=== PATIENT | male | born 1960 | race Caucasian/White ===

== ENCOUNTER 2024-10-12 15:22 | Outpatient (CLI) | payer MEDICARE, SELFPAY ==
--- OUTSIDE RECORDS SUMMARY | 2024-10-12 15:26 | XMS_ITS | Referral Summary ---
Author Organization [facility] Address [address] [place] [address] Care Team Providers Care Commercial Subcontractor Name Role Phone Santos Parada DO Unavailable [phone] Trinidad Castro MD Unavailable Kourtney Rodriguez Unavailable Maximino Honeycutt Primary Care Provider [phone] Maximino Honeycutt Unavailable [phone] Encounters Date Type Department Care Team Description 09/27/2024 12:30 PM CDT Office Visit [facility] Cardiology [address] [facility] [address] [place] [phone] Anthony Kim MD Dyspnea, unspecified type (Primary Dx); Primary hypertension; Coronary artery calcification seen on CAT scan; Pure hypercholesterolemia 09/07/2024 Orders Only [address] [address] Veronica Womack RN 09/07/2024 9:35 AM CDT Lab [facility] Building [address] [place] [id number] 09/07/2024 9:20 AM CDT Lab [facility] Building [address] [place] [address] Hyperlipidemia, unspecified hyperlipidemia type 08/04/2024 Results Follow-Up [facility] Gasteroenterology [address] [place] [address] [place] [address] [place] [address] Cary Lester MD Hemoglobin A1c, Lipid panel, Comprehensive metabolic panel, Additional followed-up results: 3 08/03/2024 Orders Only [facility] Gastroenterology [address] [place] [address] [place] [address] [place] [address] Meron Almeida LPN 08/03/2024 10:20 AM CDT Lab [facility] ([facility]) [address] [place] [phone] Hepatic steatosis; Abnormal finding of blood chemistry, unspecified 08/03/2024 8:40 AM CDT Office Visit [facility] Gastroenterology [address] [place] [address] [place] [address] [place] [address] Cary Lester MD Hepatic steatosis (Primary Dx); Abnormal finding of blood chemistry, unspecified 08/02/2024 Documentation [facility] Gastroenterology [address] [place] [address] [place] [address] [place] [address] Meron Almeida LPN 07/26/2024 Telephone [facility] Medical [facility] Cardiology [address] [facility] [address] [place] [address] Anthony Kim MD PA- repatha from Last 3 Months Allergies Active Allergy Reactions Criticality Noted Date Comments Allopurinol Nausea only Low 11/06/2020 Beta-Blockers (Beta-Adrenergic Blocking Agts) Rash Medium 01/29/2024 Ezetimibe Joint pain,Other (Se e comments) Low 09/03/2021 Ibuprofen Anaphylaxis High Lisinopril Joint pain Low 01/10/2024 Naproxen Anaphylaxis High Nsaids (Non-Steroidal Anti-Inflammatory Drug) Anaphylaxis High 07/09/2022 Asgtdqk-Gre-Ngv Reductase Inhibitors Muscle pain Medium 07/06/2019 Turmeric Diarrhea,Nausea And Vomiting,Nausea only,Fatigue Low 06/06/2021 Unclassified Drug Rash Medium 01/29/2024 Venom-Honey Bee Swelling Medium 08/17/2013 Medications dupilumab (Dupixent Syringe) syringe Inject 2 mL (300 mg total) under the skin every 14 (fourteen) days Active acetaminophen (TYLENOL ORAL) Take by mouth as needed PRN Active EPINEPHrine 0.3 mg/0.3 mL auto-injection syringe Inject 0.3 mL (0.3 mg total) into the muscle as instructed as needed for anaphylaxis 1 each 01/26/20 23 Active co-enzyme Q-10 50 mg capsule Take 1 capsule (50 mg total) by mouth daily Active gabapentin (NEURONTIN) 300 mg capsule Take 1 capsule (300 mg total) by mouth 3 (three) times a day 90 capsule 1 11/02/19 24 025 Active cholestyramine (QUESTRAN) 4 gram powder Dissolve 2 scoops ( 8 grams total) in 8 ounces of liquid and drink twice daily before meals. 378 g 11 03/03/20 24 Active evolocumab (REPATHA) syringe syringe Inject 1 mL (140 mg total) under the skin every 2 (two) weeks 6 mL 1 03/24/20 24 Active valsartan (DIOVAN) 160 mg tablet Take 1 tablet (160 mg total) by mouth daily 90 tablet 3 05/22/20 24 025 Active aspirin 81 mg enteric coated tablet Take 1 tablet (81 mg total) by mouth daily 90 tablet 1 08/15/19 25 026 Active hydroCHLOROthiaz lance (HYDRODIURIL) 25 mg tabletIndication s:Primary hypertension Take 1 tablet (25 mg total) by mouth daily 90 tablet 1 08/26/19 25 026 Active fluticasone propionate (FLONASE) 50 mcg/actuation nasal spray USE 1 SPRAY(S) IN EACH NOSTRIL TWICE A DAY 03/04/20 23 025 Discontinu ed(No longer taking - Do not display on AVS) Active Problems Problem Noted Date Diagnosed Date Septic arthritis 01/28/2024 Abscess of left knee 01/28/2024 Ischemic heart disease 07/27/2023 Rash 07/22/2023 Assessment & Plan (07/22/2023 2:32 PM FINISHING PAN OPERATOR): This is new, moisturizing oil discussed, meds as ordered, limit hot tub to 20 minutes Adverse effect of other nons teroidal anti-inflammatory drugs (NSAID), subsequent encounter 06/08/2023 Polyp of nasal cavity 06/08/2023 Uncomplicated severe persistent asthma Adverse effect of non-steroi oli anti-inflammatory drug (NSAID) 10/14/2022 10/14/2022 Allergic rhinitis 10/14/2022 10/14/2022 Allergic rhinitis due to animal hair and dander 10/14/2022 10/14/2022 Allergic rhinitis due to pollen 10/14/2022 10/14/2022 Chronic allergic conjunctivitis 10/14/2022 10/14/2022 Cough 10/14/2022 10/14/2022 Statin intolerance 10/14/2022 Assessment & Plan (10/14/2022 9:10 AM CDT): Using other meds Routine general medical exam ination at a health care facility 10/13/2022 Assessment & Plan (10/19/2023 6:27 AM CDT): Healthcare maintenance updated Lymphocytic colitis 05/21/2022 Acute cholecystitis 04/22/2022 10/14/2022 Overview (10/14/2022): Added automatically from request for surgery [id number] Severe malnutrition 03/25/2022 Nasal polyposis 03/22/2022 Assessment & Plan (03/23/2022 1:37 PM CDT): Pt reports very good control of this issue on home dupixent Q2 week, can continue as outpatient Assessment & Plan (03/22/2022 12:48 AM CDT): Pt reports very good control of this issue on home dupixent Q2 week, can continue as outpatient Biliary stricture 03/22/2022 Assessment & Plan (03/25/2022 3:41 PM CDT): Pt presented with leukocytosis, alk phos ~900 and mild transaminitis at beginning of February, found with US/MRCP to have retained stone. S/p ERCP with CBD stent and 03/19 stent exchange with biopsy done for CBD mild stricture. LFT has since been improving - unclear if related to diarrhea as above given improvement of LFT, CT showing stent in place with expected changes - No evidence of malignancy on biliary stricture bx from 03/19. Assessment & Plan (03/22/2022 12:55 AM CDT): Pt presented with leukocytosis, alk phos ~900 and mild transaminitis at beginning of February, found with US/MRCP to have retained stone. S/p ERCP with CBD stent and 03/19 stent exchange with biopsy done for CBD mild stricture. LFT has since been improving - unclear if related to diarrhea as above given improvement of LFT, CT showing stent in place with expected changes - can continue to fu outpatient as scheduled Vomiting and diarrhea 03/21/2022 Assessment & Plan (03/26/2022 3:33 PM CDT): Pt with ongoing severe watery diarrhea, has been ongoing since October but worsened over the past month. Unclear etiology but pt with dehydration and NAGMA on presentation, 12+ watery BM daily. Infectious workup from OSH ~03/02 largely negative, timing is coinciding with discovery of billiary stones and stricutre as below, but has not had any improvement despite stent placement and consistently improving LFT. CT on admission with diarrhea illness, stent in place - infectious workup unremarkable, TTG and gliadin negative, CRP normal. Vitamin D 27 -> started supplementation. Vitamin A and E WNL. fecal elastase and calprotectin pending. - GI consulted - Loperamide 2 mg TID PRN - EGD & colonoscopy 03/26 Assessment & Plan (03/22/2022 12:55 AM CDT): Pt with ongoing severe watery diarrhea, has been ongoing since October but worsened over the past month. Unclear etiology but pt with dehydration and NAGMA on presentation, 12+ watery BM daily. Infectious workup from OSH ~03/02 largely negative, timing is coinciding with discovery of billiary stones and stricutre as below, but has not had any improvement despite stent placement and consistently improving LFT. CT on admission with diarrhea illness, stent in place PLAN - will repeat infectious workup including hiv, cyrpto/giardia, cdiff, stool culture - will check lipase, zofran PRN for nausea - IVF - will ctm, if infectious workup remains negative will likely need biliary/gi evaluation Calculus of gallbladder 03/09/2022 10/15/19 23 Choledocholithiasis 03/09/2022 10/14/2022 Overview (10/14/2022): Added automatically from request for surgery [id number] Generalized abdominal pain 03/09/202210/14 Assessment & Plan (04/14/2023 10:33 AM FINISHING PAN OPERATOR): This is currently stable will continue to follow Diarrhea 03/04/2022 Hypokalemia 03/02/2022 10/14/2022 Thrombocytopenia 01/08/2022 Acute renal failure (ARF) 11/20/20212022 LAURIE (acute kidney injury) 11/20/20212022 Myelopathy 10/23/2021 10/14/2022 Other cervical disc degenera tion, unspecified cervical region 10/23/2021 10/14/2022 Spinal stenosis, cervical region 10/23/2021 10/14/2022 Spinal stenosis at L4-L5 level 08/26/2021 0 10/14/2022 Assessment & Plan (10/20/2023 11:00 AM CDT): Failing pain mgt, they discussed ablation, he is unsure, willing to see neurosurgery for opinion Assessment & Plan (04/14/2023 10:33 AM FINISHING PAN OPERATOR): Patient is going to start physical therapy already had back x-rays is going to get me a copy he may need an MRI Radiculopathy, cervical region 03/28/2021 0 10/14/2022 Assessment & Plan (04/14/2023 10:33 AM FINISHING PAN OPERATOR): Currently seeing Rheumatology Acute pain of left knee 03/12/2021 10/15/19 23 Primary osteoarthritis of both knees 03/12/2021 10/14/2022 Overview (10/14/2022): Last Assessment & Plan: We discussed the risks, benefits and alternatives. The only thing proven to slow the progression of osteoarthritis is weight loss. Every pound lost relieves 4 to 6 pounds of stress across the knee. We discussed unloading braces. Formal physical therapy to help with flexibility, mobility and strength. We discussed TENS units. Nonsteroidal anti-inflammatories as well as Tylenol and pain medication and their side effects. We discussed steroid versus Visco supplement injection. We discussed eventual total knee arthroplasty. After going over the risks, benefits and alternatives patient cannot take nonsteroidal anti-inflammatories or allopurinol. Pain is relatively well controlled at this point in time and just wants to have knowledge that he could follow-up as he is changing his orthopedics from Dr. Mcgraw to our practice. Follow-up as needed Hyperuricemia 08/28/2020 10/14/2022 Severe persistent asthma without complication Overview (04/14/2023): Last Assessment & Plan: Well-controlled at present, continue current medications and call with any problems. Reevaluate in 6 months. Assessment & Plan (10/19/2023 6:27 AM CDT): This is well controlled with current p.r.n. inhalers Assessment & Plan (06/08/2023 11:44 AM FINISHING PAN OPERATOR): This is mild/intermittent/controlled with p.r.n. inhalers Mixed hyperlipidemia 07/06/2012 Overview (04/14/2023): Last Assessment & Plan: After discussion, patient is willing to try Pravachol. I was going to defer for 3 months and let him work on diet, but after discussion again, he would prefer to try it now, thinking he would find it difficult to abstain from red meats. Therefore will start low-dose Pravachol and wait for his call and update in 1 month. If improved, and tolerating medicine, will recheck cholesterol panel in 3 months and adjust accordingly. Assessment & Plan (04/14/2023 10:33 AM FINISHING PAN OPERATOR): Patient is to continue present medications, work on diet and exercise as discussed, we did discuss the medications and potential side effects and signs and symptoms that would warrant calling office. Follow up routine. Hyperlipidemia 02/26/2012 Overview (08/28/2016): Hyperlipidemia Assessment & Plan (10/19/2023 6:27 AM CDT): Patient has been able to take Zetia or statins due to side effects I have asked him to take some fzkj-knz-odwjhvq fish oil labs at next visit Assessment & Plan (06/08/2023 11:44 AM FINISHING PAN OPERATOR): Patient has been able to take Zetia or statins due to side effects I have asked him to take some xdhk-bip-lhlndte fish oil labs at next visit Hypertension 02/26/2012 Overview (08/28/2016): Hypertension Assessment & Plan (10/19/2023 6:27 AM CDT): This is a stable chronic condition. Monitor blood pressure, call if out of parameters as we discussed. Low sodium and caffeine diet. baby asa as discussed if applicable. Diet, exercise and weight reduction. Labs as ordered. F/U routine Assessment & Plan (06/08/2023 11:44 AM FINISHING PAN OPERATOR): This has been control patient did not tolerate amlodipine he had severe muscle aches and my arthralgias with lisinopril am going to give him a trial on some hydrochlorothiazide he will do a Chem 7 in 2 weeks we discussed the med use potential side effects follow-up with 5 day blood pressure Arthralgia 02/26/2012 Overview (08/28/2016): Joint pain Assessment & Plan (10/19/2023 6:27 AM CDT): This is resolved with cessation of lisinopril Assessment & Plan (06/08/2023 11:44 AM FINISHING PAN OPERATOR): This is resolved with cessation of lisinopril Essential hypertension 02/19/2012 Overview (04/14/2023): Last Assessment & Plan: Patient felt funny yesterday and held his dose of lisinopril after measuring a blood pressure of 106 over 60s. I have encouraged him to not discontinue his medication completely, as he is on a relatively high dose of lisinopril. However, he can continue monitoring his blood pressures and cut his dose in half if they remain below 130/85, returning to his previous dose if they remain above that number. Reevaluate in 6 months. Assessment & Plan (04/14/2023 10:33 AM FINISHING PAN OPERATOR): This is a stable chronic condition. Monitor blood pressure, call if out of parameters as we discussed. Low sodium and caffeine diet. baby asa as discussed if applicable. Diet, exercise and weight reduction. Labs as ordered. F/U routine Immunizations Immunization Administration Dates Next Due Influenza, Quadrivalent, Harmony l Culture-based MDCK, Antibiotic Free, Intramuscular 05/25/2019,03/08/2019 Influenza, Trivalent, Cell Culture-based MDCK, Preservative Free, Antibiotic Free, Intramuscular 05/25/2019,03/08/2019 Influenza, Unspecified 05/08/2023(Deferr ed: Patient decision),04/14/2023(Deferred: Patient decision),2023(Deferred: Patient decision),2023(Deferred: Patient decision),04/16/2022(Deferred: Patient decision),04/14/2022(Deferred: Patient decision),05/25/2019 Pneumococcal Conjugate PCV 13 08/03/2018, 017 Pneumococcal Polysaccharide PPV23 08/10/2018 Social History Tobacco Use Types Packs/Day Years Used Date Smoking Tobacco: Never Tobacco Cessation:Counseling Given: Not Answered Alcohol Use Standard Drinks/Week Comments Yes 0 (1 standard drink = 0.6 oz pur e alcohol) [facility] Utilities Answer Date Recorded In the past 12 months has th e electric, gas, oil, or water company threatened to shut off services in your home? No 01/31/2024 Social Connection and Isolat ion Panel [NHANES] Answer Date Recorded In a typical week, how many times do you talk on the phone with family, friends, or neighbors? More than three times a week 01/31/2024 How often do you get togethe r with friends or relatives? More than three times a week 01/31/2024 How often do you attend chur ch or mandaen services? Never 01/31/2024 Do you belong to any clubs o r organizations such as christian groups, unions, fraternal or athletic groups, or school groups? Yes 01/31/2024 How often do you attend meet ings of the clubs or organizations you belong to? 1 to 4 times per year 01/31/2024 Are you , , di vorced, , never , or living with a partner? 01/31/2024 AUDIT-C Answer Date Recorded Q1: How often do you have a drink containing alc ohol? Monthly or less 10/20/2023 Q2: How many drinks containi ng alcohol do you have on a typical day when you are drinking? 1 or 2 10/20/2023 Frequency of Binge Drinking Not on file 09/22 Overall Financial Resource Strain (CARDIA) Answe r Date Recorded How hard is it for you to pa y for the very basics like food, housing, medical care, and heating? Not hard at all 01/31/2024 PHQ-2 Answer Date Recorded PHQ-2 Total Score (If total score is 3 or more points, staff should administer the PHQ-9) 0 10/20/2023 Hunger Vital Sign Answer Date Recorded Within the past 12 months, y ou worried that your food would run out before you got the money to buy more. Never true 01/31/20 24 Within the past 12 months, t he food you bought just didn't last and you didn't have money to get more. Never true 01/31/2024 PRAPARE - Transportation Answer Date Re corded In the past 12 months, has l ack of transportation kept you from medical appointments or from getting medications? No 01/2024 In the past 12 months, has l ack of transportation kept you from meetings, work, or from getting things needed for daily living? No 01/31/2024 Housing Stability Vital Sign Answer Maynor e Recorded In the last 12 months, was t here a time when you were not able to pay the mortgage or rent on time? No 03/25/2022 In the last 12 months, how many places have you lived? 1 03/25/2022 In the last 12 months, was t here a time when you did not have a steady place to sleep or slept in a care home (including now)? No 03/25/2022 Housing Stability Vital Sign Answer Maynor e Recorded In the last 12 months, was t here a time when you were not able to pay the mortgage or rent on time? No 01/31/2024 In the past 12 months, how m any times have you moved where you were living? 0 01/31/2024 At any time in the past 12 m [facility], were you homeless or living in a care home (including now)? No 01/31/2024 Personal Safety Answer Date Recorded Have you ever been in or are you currently in a harmful physical or emotional relationship or is someone making you feel afraid or unsafe? Denies 01/29/2024 Sex and Gender Information Value Date Recorded Sex Assigned at Not on file Legal Sex Male 7:31 AM FINISHING PAN OPERATOR Gender Identity Not on file Sexual Orientation Not on file Last Filed Vital Signs Vital Sign Reading Time Taken Comments Blood Pressure 138/78 09/27/2024 12:24 PM CDT Pulse 81 09/27/2024 12:24 PM CDT Temperature 36.7 C (98 F) 08/03/2024 7:45 AM CDT Respiratory Rate 16 01/31/2024 7:29 AM CDT Oxygen Saturation 99% 09/27/2024 12: 24 PM CDT Inhaled Oxygen Concentration - - Weight 95.6 kg (210 lb 12.8 oz) 025 12:24 PM CDT Height 172.7 cm (5' 7.99 ) 09/27/2024 1 2:24 PM CDT Body Mass Index 32.06 09/27/2024 12:24 PM CDT Plan of Treatment Not on file Procedures Procedure Name Priority Date/Time Associated Diagnosis Comments LIPID PANEL Routine 09/07/2024 9:31 AM CDT Hyperlipidemia, unspecified hyperlipidemia type EGFR Routine 09/07/2024 9:27 AM CDT URIC ACID Routine 09/07/2024 9:27 AM CDT COMPREHENSIVE METABOLIC PANEL Routine 09/07/2024 9:27 AM CDT EGFR Routine 08/03/2024 9:59 AM CDT Hepatic steatosis DIFFERENTIAL AUTO Routine 08/03/2024 9:5 9 AM CDT Hepatic steatosis CBC WITH AUTO DIFFERENTIAL Routine 08/03/2024 9:59 AM CDT Hepatic steatosis COMPREHENSIVE METABOLIC PANEL Routine 08/03/2024 9:59 AM CDT Hepatic steatosis LIPID PANEL Routine 08/03/2024 9:59 AM CDT Hepatic steatosis HEMOGLOBIN A1C Routine 08/03/2024 9:59 AM CDT Hepatic steatosis Abnormal finding of blood chemistry, unspecified HEPATITIS PANEL, ACUTE Routine 01/30/2024 6:16 AM CDT PSA SCREEN Routine 10/14/2022 9:44 AM CDT Routine general medical examination at a [facility] care facility COLONOSCOPY 03/26/2022 2:51 PM CDT from Last 3 Months or Most Recently Relevant to Health Maintenance Results * (ABNORMAL) Lipid panel (09/07/2024 9:31 AM CDT) Cholesterol 153 30 - 199 mg/dL Comment: Interpretive Data Ages < or = 19 years Acceptable: <170 mg/dL Borderline high: 170-199 mg/dL High: >or= 200 mg/dL Ages > or = 20 years Desirable: <200 mg/dL Borderline high: 200-239 mg/dL High: >or= 240 mg/dL Literature References: 1. Expert Panel on Integrated Guidelines for Cardiovascular Health and Risk Reduction in Children and Adolescents. Pediatrics 2011;128:S213 2. NCEP Expert Panel. Circulation 2004;110:227 Current Interpretive Data was last revised on 2018. Testing performed by: [address] [address] Triglycerides 296(H) <=149 mg/dL NIKA Comment: Interpretive Data Ages < or = 9 years Acceptable: <75 mg/dL Borderline high: 75-99 mg/dL High: >or= 100 mg/dL Ages 10 to 20 years Acceptable: <90 mg/dL Borderline high: 90-129 mg/dL High: >or= 130 mg/dL Ages > or = 20 years Desirable: <150 mg/dL Borderline high: 150-199 mg/dL High: 200-499 mg/dL Very high: >or= 499 mg/dL Literature References: 1. Expert Panel on Integrated Guidelines for Cardiovascular Health and Risk Reduction in Children and Adolescents. Pediatrics 2011;128:S213 2. NCEP Expert Panel. Circulation 2004;110:227 Current Interpretive Data was last revised on 2018. Testing performed by: [address] [address] HDL 44 >=40 mg/dL NIKA Comment: Interpretive Data Ages < or = 19 years Acceptable: >45 mg/dL Borderline low: 40-45 mg/dL Low: <40 mg/dL Ages > or = 20 years Desirable: >or= 60 mg/dL Low: <40 mg/dL Literature References: 1. Expert Panel on Integrated Guidelines for Cardiovascular Health and Risk Reduction in Children and Adolescents. Pediatrics 2011;128:S213 2. NCEP Expert Panel. Circulation 2004;110:227 Current Interpretive Data was last revised on 2018. Testing performed by: [address] [address] LDL, calculated 62 <=129 mg/dL NIKA Comment: Interpretive Data Ages < or = 19 years Acceptable: <110 mg/dL Borderline high: 110-129 mg/dL High: >or= 130 mg/dL Ages > or = 20 years Optimal: <100 mg/dL Near optimal: 100-129 mg/dL Borderline high: 130-159 mg/dL High: >160 mg/dL Calculated using the Lele LDL-C estimating equation. This equation was implemented on 2024. Prior to this date LDL-C was estimated using the Friedewald equation. Literature References: 1. Expert Panel on Integrated Guidelines for Cardiovascular Health and Risk Reduction in Children and Adolescents. Pediatrics 2011;128:S213 2. NCEP Expert Panel. Circulation 2004;110:227 3. Lele M et al. RUTH ANN Cardiol. 2020 September 21;5(5):540-548. doi: 10.1001/[email or web address].2020.0013 Current Interpretive Data was last revised on 2024. Testing performed by: [address] [address] Non-HDL Cholesterol 109 mg/dL [facility] [place] Comment: Interpretive Data Ages < or = 19 years Acceptable: <120 mg/dL Borderline high: 120-144 mg/dL High: >145 mg/dL Ages > or = 20 years When triglycerides are >200 mg/dL, Non-HDL cholesterol is a secondary target of therapy with treatment goals that are 30 mg/dL greater than the LDL cholesterol target. Literature References: 1. Expert Panel on Integrated Guidelines for Cardiovascular Health and Risk Reduction in Children and Adolescents. Pediatrics 2011;128:S213 2. NCEP Expert Panel. Circulation 2004;110:227 Current Interpretive Data was last revised on 2018. Testing performed by: [address] [address] Chol/HDL ratio 3 [facility] [place] Comment:Testing performed by : [address] [address] Blood 09/07/2024 9:31 AM CDT 09/07/2024 10:43 AM CDT Anthony Kim MD LAB BLOOD ORDERABLES Karolina elizalde Result [facility] [place] [address] [facility] Department [place] [address] * eGFR (09/07/2024 9:27 AM CDT) eGFR >90 >=60 mL/min/1. 73 m2 Comment: Interpretive Data Reference Interval Normal >/= 90 mL/min/1.73m2 Mildly decreased* 60 - 89 mL/min/1.73m2 Mildly to moderately decreased 45 - 59 mL/min/1.73m2 Moderately to severely decreased 30 - 44 mL/min/1.73m2 Severely decreased 15 - 29 mL/min/1.73m2 Kidney Failure < 15 mL/min/1.73m2 *Relative to young adult level Estimated glomerular filtration rate is determined by the 2020 CKD-EPI equation recommended by the National Kidney Foundation (A Unifying Approach to GFR Estimation: Recommendations of the NKF-ASK Task Force on Reassessing the Inclusion of Race in Diagnosing Kidney Disease, JASN 2020). The CKD-EPI equation should not be used for patients with unstable renal function and has not been validated in children and those over 70. Current interpretive data was last reviewed 2021. Testing performed by: [facility], [address] [place] [address]., [address] Blood 09/07/2024 9:27 AM CDT 09/07/2024 10:42 AM CDT us Maximino INIGUEZ LAB BLOOD ORDERABLES Final Resu lt [facility] [address] [facility] [place] [address] * (ABNORMAL) Uric acid (09/07/2024 9:27 AM CDT) Uric acid 9.5(H) 3.0 - 8.0 mg/dL Comment:Testing performed by : [address] [address] Blood 09/07/2024 9:27 AM CDT 09/07/2024 10:42 AM CDT us Maximino INIGUEZ LAB BLOOD ORDERABLES Final Resu lt NIKA [address] [facility] Department [place] [address] * (ABNORMAL) Comprehensive metabolic panel (09/07/2024 9:27 AM CDT) Sodium 140 135 - 145 mmol/L Comment:Testing performed by : [address] [address] Potassium, pl 4.3 3.3 - 4.9 mmol/L NIKA Comment:Testing performed by : [address] [address] Chloride 104 97 - 110 mmol/L NIKA Comment:Testing performed by : [address] [address] CO2 23 22 - 32 mmol/L NIKA Comment:Testing performed by : [address] [address] Anion gap 13 2 - 15 mmol/L NIKA Comment:Testing performed by : [address] [address] BUN 12 6 - 25 mg/dL NIKA Comment:Testing performed by : [address] [address] Creatinine 0.78(L) 0.80 - 1.30 mg/dL NIKA Comment:Testing performed by : [address] [address] Glucose 96 70 - 199 mg/dL NIKA Comment: Interpretive Data Fasting glucose >/= 126 mg/dl is diagnostic for diabetes. Fasting is defined as no caloric intake for at least 8 hours. Fasting glucose between 100 mg/dl to 125 mg/dl is diagnostic of prediabetes. In a patient with classic symptoms of hyperglycemia or hyperglycemic crisis, a random glucose >/= 200 mg/dl is diagnostic for diabetes. In the absence of unequivocal hyperglycemia, results should be confirmed by repeat testing. The classification and Diagnosis of Diabetes Diabetes Care 202; 46: S19-S40. Current interpretive data was last revised 2022. Testing performed by: [address] [place]., [address] Calcium 9.7 8.5 - 10.3 mg/dL NIKA Comment:Testing performed by : [facility], [address] [place] [address]., [address] Bilirubin, total 0.3 0.1 - 1.2 mg/dL NIKA Comment:Testing performed by : [address] [address] Protein, pl 7.2 6.5 - 8.5 g/dL NIKA Comment:Testing performed by : [address] [address] Albumin 4.6 3.5 - 5.0 g/dL NIKA Comment:Testing performed by : [address] [address] Alk phos 109 40 - 130 Units/L NIKA Comment:Testing performed by : [address] [address] ALT 13 7 - 55 Units/L NIKA Comment:Testing performed by : [address] [address] AST 18 10 - 50 Units/L NIKA Comment:Testing performed by : [address] [address] Blood 09/07/2024 9:27 AM CDT 09/07/2024 10:42 AM CDT Maximino INIGUEZ LAB BLOOD ORDERABLES Final Resu lt NIKA [address]79 [facility] Department [place] [address] * eGFR (08/03/2024 9:59 AM CDT) eGFR >90 >=60 mL/min/1. 73 m2 Comment: Interpretive Data Reference Interval Normal >/= 90 mL/min/1.73m2 Mildly decreased* 60 - 89 mL/min/1.73m2 Mildly to moderately decreased 45 - 59 mL/min/1.73m2 Moderately to severely decreased 30 - 44 mL/min/1.73m2 Severely decreased 15 - 29 mL/min/1.73m2 Kidney Failure < 15 mL/min/1.73m2 *Relative to young adult level Estimated glomerular filtration rate is determined by the 2020 CKD-EPI equation recommended by the National Kidney Foundation (A Unifying Approach to GFR Estimation: Recommendations of the NKF-ASK Task Force on Reassessing the Inclusion of Race in Diagnosing Kidney Disease, JASN 202). The CKD-EPI equation should not be used for patients with unstable renal function and has not been validated in children and those over 70. Current interpretive data was last reviewed 2021. Blood 08/03/2024 9:59 AM CDT 08/03/2024 10:49 AM CDT us Cary Lester MD LAB BLOOD ORDERABLES Final Res ult [facility] [place] [address] * (ABNORMAL) Differential, auto (08/03/2024 9:59 AM CDT) Neutrophil abs 10.7(H) 1.5 - 6.5 K/cumm Imm gran abs 0.1 0.0 - 0.1 K/cumm [facility] Lymphocyte abs 1.3 0.8 - 3.3 K/cumm [facility] Monocyte abs 0.7 0.2 - 0.8 K/cumm [facility] Eosinophil abs 0.0 0.0 - 0.5 K/cumm [facility] Basophil abs 0.0 0.0 - 0.1 K/cumm [facility] Neutrophil pct 84.0 % [facility] Comment: Interpretive Data Percent cell count reference ranges are not reported, since discordance with absolute values may lead to misinterpretation of CBC data. Current Interpretive Data was last revised on 2017. Imm gran pct 0.7 % [facility] Comment: Interpretive Data Percent cell count reference ranges are not reported, since discordance with absolute values may lead to misinterpretation of CBC data. Current Interpretive Data was last revised on 2017. Lymphocyte pct 10.1 % [facility] Comment: Interpretive Data Percent cell count reference ranges are not reported, since discordance with absolute values may lead to misinterpretation of CBC data. Current Interpretive Data was last revised on 2017. Monocyte pct 5.2 % [facility] Comment: Interpretive Data Percent cell count reference ranges are not reported, since discordance with absolute values may lead to misinterpretation of CBC data. Current Interpretive Data was last revised on 2017. Eosinophil pct 0.0 % [facility] Comment: Interpretive Data Percent cell count reference ranges are not reported, since discordance with absolute values may lead to misinterpretation of CBC data. Current Interpretive Data was last revised on 2017. Basophil pct 0.0 % [facility] Comment: Interpretive Data Percent cell count reference ranges are not reported, since discordance with absolute values may lead to misinterpretation of CBC data. Current Interpretive Data was last revised on 2017. Blood 08/03/2024 9:59 AM CDT 08/03/2024 10:49 AM CDT us Cary Lester MD LAB BLOOD ORDERABLES Final Res ult [facility] [place] [address] * (ABNORMAL) CBC with auto differential (08/03/2024 9:59 AM CDT) WBC 12.7(H) 3.8 - 9.9 K/cumm Hgb 14.7 13.0 - 17.5 g/dL [facility] Hct 43.0 38.9 - 50.3 % [facility] Plt 457(H) 150 - 400 K/cumm [facility] MPV 10.4 9.1 - 12.3 fL [facility] RBC 4.73 4.30 - 5.80 M/cumm [facility] MCV 90.9 81.3 - 96.4 fL [facility] MCH 31.1 27.1 - 33.3 pg [facility] MCHC 34.2 32.3 - 35.7 g/dL [facility] RDW CV 14.6 11.1 - 14.9 % [facility] RDW SD 48.6(H) 35.7 - 48.1 fL [facility] NRBC abs 0.00 0.00 - 0.01 K/cumm [facility] Blood 08/03/2024 9:59 AM CDT 08/03/2024 10:49 AM CDT Cary Lester MD LAB BLOOD ORDERABLES Final Res ult Performing Organization Address [facility] de Phone Number [facility] [place] [address] * Hemoglobin A1c (08/03/2024 9:59 AM CDT) Pathologist [facility] Hgb A1C 5.1 4.0 - 5.6 % Estimated Average Glucose 100 mg/dL [facility] Comment: The ADA recommends reporting an estimated Average Glucose (eAG) with all Hemoglobin A1c results using the equation derived from a study of 507 normal and diabetic adults. Minority populations were underrepresented and children were not included. (Diabetes Care 2020; 43(S1): S66-S76). The eAG is not equivalent to a fasting glucose. Blood 08/03/2024 9:59 AM CDT 08/03/2024 10:49 AM CDT Cary Lester MD LAB BLOOD ORDERABLES Final Res ult Performing Organization Address [facility] de Phone Number [facility] [place] [address] * Lipid panel (08/03/2024 9:59 AM CDT) Pathologist [facility] Cholesterol 142 30 - 199 mg/dL Comment: Interpretive Data Ages < or = 19 years Acceptable: <170 mg/dL Borderline high: 170-199 mg/dL High: >or= 200 mg/dL Ages > or = 20 years Desirable: <200 mg/dL Borderline high: 200-239 mg/dL High: >or= 240 mg/dL Literature References: 1. Expert Panel on Integrated Guidelines for Cardiovascular Health and Risk Reduction in Children and Adolescents. Pediatrics 2011;128:S213 2. NCEP Expert Panel. Circulation 2004;110:227 Current Interpretive Data was last revised on 2018. Triglycerides 119 <=149 mg/dL [facility] Comment: Interpretive Data Ages < or = 9 years Acceptable: <75 mg/dL Borderline high: 75-99 mg/dL High: >or= 100 mg/dL Ages 10 to 20 years Acceptable: <90 mg/dL Borderline high: 90-129 mg/dL High: >or= 130 mg/dL Ages > or = 20 years Desirable: <150 mg/dL Borderline high: 150-199 mg/dL High: 200-499 mg/dL Very high: >or= 499 mg/dL Literature References: 1. Expert Panel on Integrated Guidelines for Cardiovascular Health and Risk Reduction in Children and Adolescents. Pediatrics 2011;128:S213 2. NCEP Expert Panel. Circulation 2004;110:227 Current Interpretive Data was last revised on 2018. HDL 58 >=40 mg/dL [facility] Comment: Interpretive Data Ages < or = 19 years Acceptable: >45 mg/dL Borderline low: 40-45 mg/dL Low: <40 mg/dL Ages > or = 20 years Desirable: >or= 60 mg/dL Low: <40 mg/dL Literature References: 1. Expert Panel on Integrated Guidelines for Cardiovascular Health and Risk Reduction in Children and Adolescents. Pediatrics 2011;128:S213 2. NCEP Expert Panel. Circulation 2004;110:227 Current Interpretive Data was last revised on 2018. LDL, calculated 63 <=129 mg/dL [facility] Comment: Interpretive Data Ages < or = 19 years Acceptable: <110 mg/dL Borderline high: 110-129 mg/dL High: >or= 130 mg/dL Ages > or = 20 years Optimal: <100 mg/dL Near optimal: 100-129 mg/dL Borderline high: 130-159 mg/dL High: >160 mg/dL Calculated using the Royal LDL-C estimating equation. This equation was implemented on 2024. Prior to this date LDL-C was estimated using the Friedewald equation. Literature References: 1. Expert Panel on Integrated Guidelines for Cardiovascular Health and Risk Reduction in Children and Adolescents. Pediatrics 2011;128:S213 2. NCEP Expert Panel. Circulation 2004;110:227 3. Lele M et al. RUTH ANN Cardiol. 2020 September 21;5(5):540-548. doi: 10.1001/jamacardio.2020.0013 Current Interpretive Data was last revised on 2024. Non-HDL Cholesterol 84 mg/dL [facility] Comment: Interpretive Data Ages < or = 19 years Acceptable: <120 mg/dL Borderline high: 120-144 mg/dL High: >145 mg/dL Ages > or = 20 years When triglycerides are >200 mg/dL, Non-HDL cholesterol is a secondary target of therapy with treatment goals that are 30 mg/dL greater than the LDL cholesterol target. Literature References: 1. Expert Panel on Integrated Guidelines for Cardiovascular Health and Risk Reduction in Children and Adolescents. Pediatrics 2011;128:S213 2. NCEP Expert Panel. Circulation 2004;110:227 Current Interpretive Data was last revised on 2018. Chol/HDL ratio 2 [facility] Blood 08/03/2024 9:59 AM CDT 08/03/2024 10:49 AM CDT us Cary Lester MD LAB BLOOD ORDERABLES Final Res ult [facility] [place] [address] * Comprehensive metabolic panel (08/03/2024 9:59 AM CDT) Sodium 141 135 - 145 mmol/L Potassium, pl 4.3 3.3 - 4.9 mmol/L [facility] Chloride 103 97 - 110 mmol/L [facility] CO2 26 22 - 32 mmol/L [facility] Anion gap 12 2 - 15 mmol/L [facility] BUN 18 6 - 25 mg/dL [facility] Creatinine 0.83 0.80 - 1.30 mg/dL [facility] Glucose 115 70 - 199 mg/dL [facility] Comment: Interpretive Data Fasting glucose >/= 126 mg/dl is diagnostic for diabetes. Fasting is defined as no caloric intake for at least 8 hours. Fasting glucose between 100 mg/dl to 125 mg/dl is diagnostic of prediabetes. In a patient with classic symptoms of hyperglycemia or hyperglycemic crisis, a random glucose >/= 200 mg/dl is diagnostic for diabetes. In the absence of unequivocal hyperglycemia, results should be confirmed by repeat testing. The classification and Diagnosis of Diabetes Diabetes Care 2021; 46: S19-S40. Current interpretive data was last revised 2022. Calcium 9.7 8.5 - 10.3 mg/dL [facility] Bilirubin, total 0.3 0.1 - 1.2 mg/dL [facility] Protein, pl 7.7 6.5 - 8.5 g/dL [facility] Albumin 4.8 3.5 - 5.0 g/dL [facility] Alk phos 108 40 - 130 Units/L [facility] ALT 12 7 - 55 Units/L [facility] AST 12 10 - 50 Units/L [facility] Blood 08/03/2024 9:59 AM CDT 08/03/2024 10:49 AM CDT us Cary Lester MD LAB BLOOD ORDERABLES Final Res ult [facility] [place] [address] * Hepatitis panel, acute Blood (01/30/2024 6:16 AM CDT) Hep A IgM Nonreactive Nonreactive Comment: Interpretive Data: If Hep A IgM Ab is reported as Equivocal, a new sample should be drawn in two weeks for testing. Current interpretive data was last revised on 19. Hep B core IgM Nonreactive Nonreactive [facility] Comment: Interpretive Data If HepB Core IgM Ab is reported as Equivocal, a new sample should be drawn in two weeks for testing. Current interpretive data was last revised on 19. Hep C Ab Nonreactive Nonreactive [facility] Comment: Antibodies to HCV not detected. Does NOT exclude the possibility of recent exposure to HCV. Current interpretive data was last revised on 22 Interpretive Data Nonreactive: Antibodies to HCV not detected. Does NOT exclude the possibility of recent exposure to HCV. Equivocal: Equivocal for HCV antibodies. Supplemental molecular testing will be automatically performed to determine infection status in accordance with current CDC screening recommendations. Reactive: Positive for HCV antibodies. This may represent current or past HCV infection. Supplemental molecular testing will be automatically performed to determine current infection status in accordance with current CDC screening recommendations. Interpretive data was last revised on 2019. HepBsAg Nonreactive Nonreactive [facility] Blood 01/30/2024 6:16 AM CDT 01/30/2024 6:29 AM CDT Indigo Bowers MD LAB MICROBIOLOGY - G ENERAL ORDERABLES Final Result Performing Organization Address [facility] Co de Phone Number [place] [phone] [facility] [place] [address] * PSA screen (10/14/2022 9:44 AM CDT) PSA-Total 0.26 <=5.40 ng/mL [facility] Comment: Interpretive Data AGE SEX REFERENCE INTERVAL 0 minutes-150 years Female None 0 minutes-49 years Male None 50-59 years Male 0-3.90 60-69 years Male 0-5.40 70-79 years Male 0-6.20 80-150 years Male 0-6.20 The Osvaldo PSA Total assay procedure was used. Results from different manufacturers or methods may not be comparable. Serial testing should be performed using the same method. Current interpretive data last revised 21. Testing performed by: [facility], [address] [place] [address]., [id number] Blood 10/14/2022 9:44 AM CDT 10/14/2022 11:42 AM CDT us Maximino INIGUEZ LAB BLOOD ORDERABLES Final Resu lt Performing Organization Address [facility] Co de Phone Number [place] [phone] [facility] [place] [address] * COLONOSCOPY (03/26/2022 2:51 PM CDT) Anatomical Region Laterality Modality Other Narrative Procedure Note Britany Díaz MD - 03/26/2022 2:51 PM CDT [facility] Patient Name: Dylan Simmons Procedure Date: 03/26/2022 2:51 PM Date of : 1960 Admit Type: Inpatient Age: 62 Gender: Male Attending MD: Britany Díaz M.D. Room: [facility] 5 ROOM 224 Note Status: Finalized Procedure: Colonoscopy Indications: Last colonoscopy within the past 5 years,Diarrhea Referring MD: Jodi Mcclellan M.D. Providers: Britany Díaz M.D., Mitesh Salinas M.D. Medicines: Monitored Anesthesia Care Complications: No immediate complications. Estimated Blood Loss: Estimated blood loss was minimal. Procedure: Pre-Anesthesia Assessment: - Immediately prior to administration ofmedications, the patient was re-assessed for adequacy to receive sedatives. - The risks and benefits of the procedure and the sedation options and risks were discussed with the patient. All questions were answered and informed consent was obtained. The benefits, risks and alternatives of theprocedure and sedation were discussed and informed consentwas obtained. All questions were answered. Please referto the signed informed consent document in the medical record. The scope was passed under direct vision.The [id number] Endoscope was introduced through the anus and advanced to the the cecum, identifiedby appendiceal orifice and ileocecal valve. The colonoscopy was performed without difficulty. The patient tolerated the procedure well. The qualityof the bowel preparation was evaluated using the BBPS ([place] Bowel Preparation Scale) with scores of:Right Colon = 3, Transverse Colon = 3 and Left Colon = 3 (entire mucosa seen well with no residual staining, small fragments of stool or opaque liquid). Thetotal BBPS score equals 9. The bowel preparation used was GoLYTELY via split dose instruction. The quality of the bowel preparation was good. Findings: The perianal and digital rectal examinations were normal. The colon (entire examined portion) appeared normal. Biopsies for histology were taken with a cold forceps from the right colon, left colon and rectum for evaluation of microscopic colitis. The entire examined colon appeared normal on direct and retroflexion views. Impression: - The entire examined colon is normal. Biopsied. Recommendation: - Await pathology results. - Further recommendations per inpatient GI. - This exam was not done for screening, pleascontinue with our outpatient CRC screening schedule. Attending Participation: I was present and participated during the entire procedure, including non-valentine portions. Electronically signed by Britany Díaz MD Britany Díaz M.D. 03/26/2022 3:38:45 PM Number of Addenda: 0 Note Initiated On: 03/26/2022 2:51 PM CC Letter to: Bernie Vanessa M.D. Recognized by the [place] [employer] for promoting quality in endoscopy Britany Díaz MD ENDOSCOPY PROCEDURES Final Result from Last 3 Months or Most Recently Relevant to Health Maintenance Insurance BLUE Jenn [place] [employer] [place] [facility] Advance Directives For more information, please contact: [phone] * Full Code (Latest Code Status on File) Date Activated Date Inactivated Comments 01/30/2024 12:37 PM 01/31/2024 4:47 PM * Full Code Date Activated Date Inactivated Comments 01/29/2024 12:55 AM 01/30/2024 12:37 PM * Full Code Date Activated Date Inactivated Comments 03/22/2022 1:25 AM 03/26/2022 11:29 PM Care Teams Commercial Subcontractor Relationship Specialty Start Date End Date Maximino Honeycutt PA [address] [facility] [address] [place] [address] PCP - General Family Medicine 03/07/24 Santos Parada DO [address] [facility] [address] [place] [address] Consulting Physician Family Medicine 08/06/23 Trinidad Castro MD [address] [facility] [address] [place] [address] Consulting Physician Pain Management 09/02/23 Kourtney Rodriguez PA [address] [facility] [address] [address] Orthopedic Surgery 01/31/24 Maximino Honeycutt PA [address] [facility] [address] [place] [address] Physician Button Clamper Family Medicine 03/07/24
--- OUTSIDE RECORDS SUMMARY | 2024-10-12 15:26 | XMS_ITS | Clinical Summary ---
Author Organization [facility] Address [address] [place] [address] Care Team Providers Care Construction Rep Name Role Phone Santos Parada DO Unavailable [phone] Trinidad Castro MD Unavailable Kourtney Rodriguez Unavailable Maximino Honeycutt Primary Care Provider Maximino Honeycutt Unavailable [phone] Allergies Active Allergy Reactions Criticality Noted Date Comments Allopurinol Nausea only Low 11/06/2020 Beta-Blockers (Beta-Adrenergic Blocking Agts) Rash Medium 01/29/2024 Ezetimibe Joint pain,Other (Se e comments) Low 09/03/2021 Ibuprofen Anaphylaxis High Lisinopril Joint pain Low 01/10/2024 Naproxen Anaphylaxis High Nsaids (Non-Steroidal Anti-Inflammatory Drug) Anaphylaxis High 07/09/2022 Yrgfcyf-Mes-Wsi Reductase Inhibitors Muscle pain Medium 07/06/2019 Turmeric [...] 07/22/2023 Assessment & Plan (07/22/2023 2:32 PM CONSERVATION AGENT): This is new, moisturizing oil discussed, meds [...] (10/14/2022): Added automatically from request for surgery [id number] Severe malnutrition 03/25/2022 Nasal polyposis 03/22/2022 Assessment [...] (10/14/2022): Added automatically from request for surgery [id number] Generalized abdominal pain 03/09/202210/14 Assessment & Plan (04/14/2023 10:33 AM CONSERVATION AGENT): This is currently stable will continue to [...] opinion Assessment & Plan (04/14/2023 10:33 AM CONSERVATION AGENT): Patient is going to start physical therapy already had back x-rays is going to get me a copy he may need an MRI Radiculopathy, cervical region 03/28/2021 0 10/14/2022 Assessment & Plan (04/14/2023 10:33 AM CONSERVATION AGENT): Currently seeing Rheumatology Acute pain of left [...] inhalers Assessment & Plan (06/08/2023 11:44 AM CONSERVATION AGENT): This is mild/intermittent/controlled with p.r.n. inhalers Mixed [...] accordingly. Assessment & Plan (04/14/2023 10:33 AM CONSERVATION AGENT): Patient is to continue present medications, work [...] I have asked him to take some yzhc-xcy-qnfyduw fish oil labs at next visit Assessment & Plan (06/08/2023 11:44 AM CONSERVATION AGENT): Patient has been able to take Zetia or statins due to side effects I have asked him to take some dyba-yha-ewhfldm fish oil labs at next visit Hypertension 02/26/2012 Overview (08/28/2016): Hypertension Assessment & Plan (10/19/2023 6:27 AM CDT): This is a stable chronic condition. Monitor blood pressure, call if out of parameters as we discussed. Low sodium and caffeine diet. baby asa as discussed if applicable. Diet, exercise and weight reduction. Labs as ordered. F/U routine Assessment & Plan (06/08/2023 11:44 AM CONSERVATION AGENT): This has been control patient did not [...] lisinopril Assessment & Plan (06/08/2023 11:44 AM CONSERVATION AGENT): This is resolved with cessation of lisinopril [...] months. Assessment & Plan (04/14/2023 10:33 AM CONSERVATION AGENT): This is a stable chronic condition. Monitor blood pressure, call if out of parameters as we discussed. Low sodium and caffeine diet. baby asa as discussed if applicable. Diet, exercise and weight reduction. Labs as ordered. F/U routine Encounters Date Type Department Care Team Description 09/27/2024 12:30 PM CDT Office Visit [facility] Card[facility] [address] [facility] [address] [place] [phone] Anthony Kim MD Dyspnea, unspecified type (Primary Dx); Primary hypertension; Coronary artery calcification seen on CAT scan; Pure hypercholesterolemia 09/07/2024 9:35 AM CDT Lab [facility] [address] [place] [address] 09/07/2024 9:20 AM CDT Lab [facility] [address] [place] [address] Hyperlipidemia, unspecified hyperlipidemia type 09/07/2024 Orders Only [facility] [address] [place] [address] Veronica Womack RN 08/04/2024 Results Follow-Up [facility] 12th [place] [address] [place] [address] Cary Lester MD Hemoglobin A1c, Lipid panel, Comprehensive metabolic panel, Additional followed-up results: 3 08/03/2024 10:20 AM CDT Lab [facility] ([facility]) [address] [place] [phone] Hepatic steatosis; Abnormal finding of blood chemistry, unspecified 08/03/2024 8:40 AM CDT Office Visit [facility] [address] [place] [address] [place] [address] [place] [address] Cary Lester MD Hepatic steatosis (Primary Dx); Abnormal finding of blood chemistry, unspecified 08/03/2024 Orders Only [facility] [address] [place] [address] [place] [address] [place] [address] Meron Almeida LPN 08/02/2024 Documentation [facility] [address] [place] [address] [place] [address] [place] [address] Meron Almeida LPN 07/26/2024 Telephone [facility]iology [address] [place] [address] [place] [phone] Anthony Kim MD PA- repcarol from Last 3 Months Immunizations Immunization Administration Dates Next Due Influenza, Quadrivalent, Harmony l Culture-based MDCK, Antibiotic Free, Intramuscular 05/25/2019,03/08/2019 Influenza, Trivalent, Cell Culture-based MDCK, Preservative Free, Antibiotic Free, Intramuscular 05/25/2019,03/08/2019 Influenza, Unspecified 05/08/2023(Deferr ed: Patient decision),04/14/2023(Deferred: Patient decision),2023(Deferred: Patient decision),2023(Deferred: Patient decision),04/16/2022(Deferred: Patient decision),04/14/2022(Deferred: Patient decision),05/25/2019 Pneumococcal Conjugate PCV 13 08/03/2018, 017 Pneumococcal Polysaccharide PPV23 08/10/2018 Surgical History Surgery Date Site/Laterality Comments TONSILLECTOMY SINUS ENDOSCOPY CARPAL TUNNEL RELEASE SHOULDER SURGERY KNEE SURGERY INGUINAL HERNIA REPAIR NECK SURGERY CHOLECYSTECTOMY KNEE ARTHROSCOPY W/ LATERAL RELEASE CATARACT EXTRACTION Medical History Medical History Date Comments Hypercholesterolemia Hypertension Asthma Eosinophilic asthma Samter's triad Arthritis Cataract Family History Medical History Relation Name Comments Stroke Brother 1 Mike No Known Problems Brother 2 Drug abuse Brother 3 Mike Simmons Multiple sclerosis Brother 3 Mike Simmons No Known Problems Daughter 1 No Known Problems Daughter 2 COPD Father Dylan Smoker Colonic polyp Father Dylan Diabetes Father Dylan Hypertension Father Dylan Arthritis Mother Parvin COPD Mother Parvin Smoker Hypertension Other Family history of Hypertension; Colon cancer Paternal Grandmother Celiac disease Neg Hx Diabetes type I Neg Hx Inflammatory bowel disease Neg Hx Thyroid disease Neg Hx Relation Name Status Comments Brother 1 Mike Alive Brother 2 Alive Brother 3 Mike Simmons Alive Daughter 1 Alive Daughter 2 Alive Father Dylan Mother Parvin Alive Other Paternal Grandmother Social History Tobacco Use Types Packs/Day Years Used Date Smoking Tobacco: Never Tobacco Cessation:Counseling Given: Not Answered Alcohol Use Standard Drinks/Week Comments Yes 0 (1 standard drink = 0.6 oz pur e alcohol) [employer] Utilities Answer Date Recorded In the past 12 months has [employer] electric, gas, oil, or water [employer] threatened to shut off services in your [...] 01/31/2024 How often do you attend chur or synagogue services? Never 01/31/2024 Do you belong to any clubs o r organizations such as moravian groups, unions, fraternal or athletic groups, or [...] place to sleep or slept in a half-way (including now)? No 03/25/2022 Housing Stability Vital Sign Answer Maynor e Recorded In the last 12 months, was t here a time when you were not able to pay the mortgage or rent on time? No 01/31/2024 In the past 12 months, how m any times have you moved where you were living? 0 01/31/2024 At any time in the past 12 m [facility], were you homeless or living in a half-way (including now)? No 01/31/2024 Personal Safety Answer Date Recorded Have you ever been in or are you currently in a harmful physical or emotional relationship or is someone making you feel afraid or unsafe? Denies 01/29/2024 Sex and Gender Information Value Date Recorded Sex Assigned at Not on file Legal Sex Male 7:31 AM CONSERVATION AGENT Gender Identity Not on file Sexual Orientation Not on file Obstetrics History Last Filed Vital Signs Vital Sign Reading [...] 09/27/2024 12:24 PM CDT Plan of Treatment Health Maintenance Due Date Last Done Comments Hepatitis B Screening 02/28/1976 Colon Cancer Screening-Colonoscopy 03/26/2024 03/26/2022, 03/26/2022 Prostate Cancer Screening-PSA 10/14/2024 10/14/2022 Depression Screening 10/19/2024 10/20/2023, 04/14/2023, 03/21/2022, Additional history exists Pneumococcal vaccine 65+ (3 of 3 - PCV20 or PCV21) 10/19/2024 08/10/2018, 08/03/2018, 03/10/2017 Postponed from 08/11/2023 (Patient declined, but will receive in the future) Well Visit 65+ 10/19/2024 10/20/2023, 10/14/2022 Influenza Vaccine (Season Ended) 2025 05/25/2019, 05/25/2019, 05/25/2019, Additional history exists Fall Risk Assessment 01/30/2025 01/31/2024, 10/20/2023, 04/14/2023 Hepatitis C Screening Completed 01/30/2024 DTaP/Tdap/Td Vaccine Discontinued Zoster Vaccine Discontinued Procedures Procedure Name Priority Date/Time Associated Diagnosis [...] CDT Routine general medical examination at a health care facility COLONOSCOPY 03/26/2022 2:51 PM CDT [...] last revised on 2018. Testing performed by: [address] [address] Triglycerides 296(H) <=149 mg/dL [facility] Comment: Interpretive [...] last revised on 2018. Testing performed by: [address] [address] HDL 44 >=40 mg/dL [facility] Comment: Interpretive [...] last revised on 2018. Testing performed by: [address] [address] LDL, calculated 62 <=129 mg/dL [facility] Comment: [...] last revised on 2024. Testing performed by: [address] [address] Non-HDL Cholesterol 109 mg/dL [facility] [place] Comment: [...] last revised on 2018. Testing performed by: [address] [address] Chol/HDL ratio 3 [facility] Comment:Testing performed by : [address] [address] Blood 09/07/2024 9:31 AM CDT 09/07/2024 10:43 AM CDT us Anthony Kim MD LAB BLOOD ORDERABLES Karolina elizalde Result [facility] [place] [address] [facility] Department [place] [address] * eGFR (09/07/2024 9:27 AM CDT) eGFR [...] was last reviewed 2021. Testing performed by: [address] [address] Blood 09/07/2024 9:27 AM CDT 09/07/2024 10:42 AM CDT Maximino INIGUEZ LAB BLOOD ORDERABLES Final Resu lt Performing Organization Address City/[facility]/ZIP Co de Phone Number NIK[facility] [address] [place] [address] * (ABNORMAL) Uric acid (09/07/2024 9:27 AM CDT) Uric acid 9.5(H) 3.0 - 8.0 mg/dL Comment:Testing performed by : [address] [address] Blood 09/07/2024 9:27 AM CDT 09/07/2024 10:42 AM CDT Maximino INIGUEZ LAB BLOOD ORDERABLES Final Resu lt Performing Organization Address City/[facility]/ZIP Co de Phone Number NIKA [address] [place] [address] * (ABNORMAL) Comprehensive metabolic panel (09/07/2024 9:27 AM CDT) Sodium 140 135 - 145 mmol/L Comment:Testing performed by : [address] [address] Potassium, pl 4.3 3.3 - 4.9 mmol/L [facility] Comment:Testing performed by : [address] [address] Chloride 104 97 - 110 mmol/L [facility] Comment:Testing performed by : [address] [address] CO2 23 22 - 32 mmol/L [facility] Comment:Testing performed by : [address] [address] Anion gap 13 2 - 15 mmol/L [facility] Comment:Testing performed by : [address] [address] BUN 12 6 - 25 mg/dL [facility] Comment:Testing performed by : [address] [address] Creatinine 0.78(L) 0.80 - 1.30 mg/dL [facility] Comment:Testing performed by : [address] [address] Glucose 96 70 - 199 mg/dL [facility] Comment: Interpretive Data Fasting glucose >/= 126 [...] was last revised 2022. Testing performed by: [address] [address] Calcium 9.7 8.5 - 10.3 mg/dL [facility] [place] Comment:Testing performed by : [address] [address] Bilirubin, total 0.3 0.1 - 1.2 mg/dL [facility] Comment:Testing performed by : [address] [address] Protein, pl 7.2 6.5 - 8.5 g/dL [facility] Comment:Testing performed by : [address] [address] Albumin 4.6 3.5 - 5.0 g/dL [facility] Comment:Testing performed by : [address] [address] Alk phos 109 40 - 130 Units/L [facility] Comment:Testing performed by : [address] [address] ALT 13 7 - 55 Units/L [facility] Comment:Testing performed by : [address] [address] AST 18 10 - 50 Units/L [facility] Comment:Testing performed by : [address] [address] Blood 09/07/2024 9:27 AM CDT 09/07/2024 10:42 AM CDT Maximino INIGUEZ LAB BLOOD ORDERABLES Final Resu lt [facility] [address] [facility] Department [place] [address] * eGFR (08/03/2024 9:59 AM CDT) eGFR [...] MD LAB BLOOD ORDERABLES Final Res ult [facility] [address] [facility] Department [place] [address] * (ABNORMAL) Differential, auto (08/03/2024 9:59 AM CDT) Neutrophil abs 10.7(H) 1.5 - 6.5 K/cumm Imm gran abs 0.1 0.0 - 0.1 K/cumm [facility] Lymphocyte abs 1.3 0.8 - 3.3 K/cumm [facility] Monocyte abs 0.7 0.2 - 0.8 K/cumm [facility] Eosinophil abs 0.0 0.0 - 0.5 K/cumm [facility] Basophil abs 0.0 0.0 - 0.1 K/cumm [facility] Neutrophil pct 84.0 % [facility] Comment: Interpretive Data Percent cell count reference ranges are not reported, since discordance with absolute values may lead to misinterpretation of CBC data. Current Interpretive Data was last revised on 2017. Imm gran pct 0.7 % [facility] Comment: Interpretive Data Percent cell count reference ranges are not reported, since discordance with absolute values may lead to misinterpretation of CBC data. Current Interpretive Data was last revised on 2017. Lymphocyte pct 10.1 % [facility] Comment: Interpretive Data Percent cell count reference ranges are not reported, since discordance with absolute values may lead to misinterpretation of CBC data. Current Interpretive Data was last revised on 2017. Monocyte pct 5.2 % [facility] Comment: Interpretive Data Percent cell count reference ranges are not reported, since discordance with absolute values may lead to misinterpretation of CBC data. Current Interpretive Data was last revised on 2017. Eosinophil pct 0.0 % [facility] Comment: Interpretive Data Percent cell count reference ranges are not reported, since discordance with absolute values may lead to misinterpretation of CBC data. Current Interpretive Data was last revised on 2017. Basophil pct 0.0 % [facility] Comment: Interpretive Data Percent cell count reference ranges are not reported, since discordance with absolute values may lead to misinterpretation of CBC data. Current Interpretive Data was last revised on 2017. Blood 08/03/2024 9:59 AM CDT 08/03/2024 10:49 AM CDT us Cary Lester MD LAB BLOOD ORDERABLES Final Res ult [facility] Department [place] [address] * (ABNORMAL) CBC with auto differential (08/03/2024 9:59 AM CDT) WBC 12.7(H) 3.8 - 9.9 K/cumm Hgb 14.7 13.0 - 17.5 g/dL [facility] Hct 43.0 38.9 - 50.3 % [facility] Plt 457(H) 150 - 400 K/cumm [facility] MPV 10.4 9.1 - 12.3 fL [facility] RBC 4.73 4.30 - 5.80 M/cumm [facility] MCV 90.9 81.3 - 96.4 fL [facility] MCH 31.1 27.1 - 33.3 pg [facility] MCHC 34.2 32.3 - 35.7 g/dL [facility] RDW CV 14.6 11.1 - 14.9 % [facility] RDW SD 48.6(H) 35.7 - 48.1 fL [facility] NRBC abs 0.00 0.00 - 0.01 K/cumm [facility] Blood 08/03/2024 9:59 AM CDT 08/03/2024 10:49 AM CDT Cary Lester MD LAB BLOOD ORDERABLES Final Res ult Performing Organization Address [facility] [place] [address] * Hemoglobin A1c (08/03/2024 9:59 AM CDT) Hgb A1C 5.1 4.0 - 5.6 % Estimated Average Glucose 100 mg/dL [facility] Comment: The ADA recommends reporting an estimated Average Glucose (eAG) with all Hemoglobin A1c results using the equation derived from a study of 507 normal and diabetic adults. Minority populations were underrepresented and children were not included. (Diabetes Care 2020; 43(S1): S66-S76). The eAG is not equivalent to a fasting glucose. Blood 08/03/2024 9:59 AM CDT 08/03/2024 10:49 AM CDT Result [facility] Cary Lester MD LAB BLOOD ORDERABLES Final Res ult Performing Organization Address [facility] [place] [address] * Lipid panel (08/03/2024 9:59 AM CDT) Cholesterol 142 30 - 199 mg/dL Comment: [...] revised on 2018. Triglycerides 119 <=149 mg/dL [facility] Comment: Interpretive Data Ages < or = [...] revised on 2018. HDL 58 >=40 mg/dL [facility] Comment: Interpretive Data Ages < or = [...] on 2018. LDL, calculated 63 <=129 mg/dL [facility] Comment: Interpretive Data Ages < or = [...] NCEP Expert Panel. Circulation 2004;110:227 3. Lele Euceda et al. RUTH ANN Cardiol. 2020 September 21;5(5):540-548. doi: 10.1001/jamacardio.2020.0013 Current Interpretive Data was last revised on 2024. Non-HDL Cholesterol 84 mg/dL [facility] Comment: Interpretive Data Ages < or = [...] last revised on 2018. Chol/HDL ratio 2 [facility] Blood 08/03/2024 9:59 AM CDT 08/03/2024 10:49 AM CDT us Cary Lester MD LAB BLOOD ORDERABLES Final Res ult [facility] Department [place] [address] * Comprehensive metabolic panel (08/03/2024 9:59 AM CDT) Sodium 141 135 - 145 mmol/L Potassium, pl 4.3 3.3 - 4.9 mmol/L [facility] Chloride 103 97 - 110 mmol/L [facility] CO2 26 22 - 32 mmol/L [facility] Anion gap 12 2 - 15 mmol/L [facility] BUN 18 6 - 25 mg/dL [facility] Creatinine 0.83 0.80 - 1.30 mg/dL [facility] Glucose 115 70 - 199 mg/dL [facility] Comment: Interpretive Data Fasting glucose >/= 126 [...] 2022. Calcium 9.7 8.5 - 10.3 mg/dL [facility] Bilirubin, total 0.3 0.1 - 1.2 mg/dL [facility] Protein, pl 7.7 6.5 - 8.5 g/dL [facility] Albumin 4.8 3.5 - 5.0 g/dL [facility] Alk phos 108 40 - 130 Units/L [facility] ALT 12 7 - 55 Units/L [facility] AST 12 10 - 50 Units/L [facility] Blood 08/03/2024 9:59 AM CDT 08/03/2024 10:49 AM CDT us Cary Lester MD LAB BLOOD ORDERABLES Final Res ult [facility] Department [place] [address] * Hepatitis panel, acute Blood (01/30/2024 6:16 AM CDT) Hep A IgM Nonreactive Nonreactive Comment: Interpretive Data: If Hep A IgM Ab is reported as Equivocal, a new sample should be drawn in two weeks for testing. Current interpretive data was last revised on 19. Hep B core IgM Nonreactive Nonreactive [facility] Comment: Interpretive Data If HepB Core IgM Ab is reported as Equivocal, a new sample should be drawn in two weeks for testing. Current interpretive data was last revised on 19. Hep C Ab Nonreactive Nonreactive [facility] Comment: Antibodies to HCV [...] last revised on 2019. HepBsAg Nonreactive Nonreactive [facility] Blood 01/30/2024 6:16 AM CDT 01/30/2024 6:29 AM CDT Indigo Bowers MD LAB MICROBIOLOGY - G ENERAL ORDERABLES Final Result Performing Organization Address City/[facility] Co de Phone Number [address] [place] [address] * PSA screen (10/14/2022 9:44 AM CDT) PSA-Total 0.26 <=5.40 ng/mL [facility] Comment: Interpretive Data AGE [...] data last revised 21. Testing performed by: [facility], [address] [place] [address]., [address] Blood 10/14/2022 9:44 AM CDT 10/14/2022 11:42 AM CDT us Maximino INIGUEZ LAB BLOOD ORDERABLES Final Resu lt Performing Organization Address City/[facility] Co de Phone Number [address] [place] [address] * COLONOSCOPY (03/26/2022 2:51 PM CDT) Anatomical Region Laterality Modality Other Narrative Procedure Note Britany Díaz MD - 03/26/2022 2:51 PM CDT [facility] Patient Name: Dylan Simmons Procedure Date: 03/26/2022 2:51 PM Date of : 1960 Admit Type: Inpatient Age: 62 Gender: Male Attending MD: Britany Díaz M.D. Room: [facility] 5 ROOM 224 Note Status: Finalized Procedure: [...] The scope was passed under direct vision.The [id number] Endoscope was introduced through the anus and advanced to the the cecum, identifiedby appendiceal orifice and ileocecal valve. The colonoscopy was performed without difficulty. The patient tolerated the procedure well. The qualityof the bowel preparation was evaluated using the BBPS ([place] Bowel Preparation Scale) with scores of:Right Colon [...] to: Bernie Vanessa M.D. Recognized by the [place] [employer] for promoting quality in endoscopy us Britany Díaz MD ENDOSCOPY PROCEDURES Final Result from Last 3 Months or Most Recently Relevant to Health Maintenance Insurance [employer] CHOICE [place] MEDIC[place] [facility] Advance Directives For more information, please contact: [phone] * Full Code (Latest Code Status on File) Date Activated Date Inactivated Comments 01/30/2024 12:37 PM 01/31/2024 4:47 PM * Full Code Date Activated Date Inactivated Comments 01/29/2024 12:55 AM 01/30/2024 12:37 PM * Full Code Date Activated Date Inactivated Comments 03/22/2022 1:25 AM 03/26/2022 11:29 PM Care Teams Construction Rep Relationship Specialty Start Date End Date Maximino Honeycutt PA [address] [facility] [address] [place] [address] PCP - General Family Medicine 03/07/24 Santos Parada DO [address] [facility] [address] [place] [address] Consulting Physician Family Medicine 08/06/23 Trinidad Castro MD [address] [facility] [address] [place] [address] Consulting Physician Pain Management 09/02/23 Kourtney Rodriguez PA [address] [address] Orthopedic Surgery 01/31/24 Maximino Honeycutt PA [address] [address] Physician Recovery Assistant Family Medicine 03/07/24
--- OUTSIDE RECORDS SUMMARY | 2024-10-12 15:27 | XMS_ITS ---
Author Organization [facility] [place] ([address]) Address [address] [place] [address] Care Team Providers Care Vocal Teacher Name Role Phone Maximino Mancera Primary Care Provider Unavailabl Boyd Lobato Unavailable [phone] Le Raza Unavailable [phone] REASON FOR VISIT Asthma follow-up Encounters Encounter Location Date Provider Diagnosis [facility] [address] [place] [address] 03/23/2024 Le Raza Plan Of Treatment Next Appt Details Provider Name:Le Raza , 12/14/2024 09:00:00 AM, [address] [facility], [address], [place], [address], Progress Notes * Dylan FARR JrDOB:[birth year] (64 yo M)Acc No.[id number]:03/23/2024 Asthma F/U Patient: Iván Dylan CHAVEZ Jr Provider: Mohan Raza PA-C :1960 A ge:64 Y S ex:Male Date:03/23/2024 [facility] [facility] [place], [place] Pcp:GEETHA Day Subjective: * Chief Complaints: * 1 . Asthma follow-up. * Medical History: Objective: * Vitals: Assessment: Plan: * Treatment: * Billing Information: * Visit Code: * Procedure Codes: * Electronic signature of Wil Raza PA-C, MPAS on 10/12/2024 at 03:26 PM CDT Sign off status: Pending * Provider: Mohan Raza PA-C Date: 1 Generated for Arielle jefferson/Elijah/Mirna on: 0 10/12/2024 03:26 PM CDT
--- OUTSIDE RECORDS SUMMARY | 2024-10-12 15:27 | XMS_ITS | Patient Health Record ---
Author Organization [facility] [place] ([address]) Address [address] [place] [address] Care Team Providers Care Manager Customs Name Role Phone Maximino Mancera Primary Care Provider UnavailBoyd Quevedo Unavailable [phone] Le Raza Unavailable [phone] [employer], Provider Unavailable Unavailab le Allergies Allergen (clinical drug ingredient) Drug/Non Drug Allergy documented on EMR Reaction Allergy Type Onset Date Status Non-steroidal anti-inflammatory agent (FN) NSAID (uncoded) anaphylaxis Allergy Active Reason For Referral No Information Medications Medication SIG (Take, Route, Frequency, Duration) Notes Start Date End Date Status Fluticasone Propionate 50 MCG/ACT 1 spray(s) in each nostril bid for 30 day(s) Not-Taking Leqvio 284 MG/1.5 ML DIRECTED SUBCUTANEOUSLY EVERY 6 MONTHS *Please review and pick correct strength-formul ation from Medispan options. If intended option is not shown, discontinue and re-order from Quick Search* Not-Taking Lisinopril 40 MG 1 tab(s) orally once a day Not-Taking Dupixent 300 MG/2ML inject 1 pen Subcutaneous every 2 weeks for 56 days 4 Active LISINOPRIL 40 mg 1 tab(s) orally once a day Active Olopatadine HCl 0.2 % 1 gtt in each affected eye once a day for 10 day(s) Not-Taking OLOPATADINE OPHTHALMIC 0.2% 1 gtt in each affected eye once a day for 10 day(s) Active predniSONE 20 MG 3 tablets orally once a day-call MD before using for 5 day(s) Not-Taking Arnuity Ellipta 100 MCG/ACT 1 puff(s) inhaled every 24 hours for 90 days Not-Taking Auvi-Q 0.3 MG/0.3ML 0.3 mg intramuscularly once Active hydroCHLOROthiazide 25 MG 1 tab(s) orally once a day Active Cholestyramine 4 G/5 G DIRECTED ORALL Y 2 TIMES A DAY for 30 DAY(S) uses once a day *Please review and pick correct strength-formul ation from Moozey options. If intended option is not shown, discontinue and re-order from Quick Search* Active NASAL WASHES N/A as directed intranasally as needed for 30 Active Gabapentin 300 MG 1 capsule Orally Once a day Active AUVI -Q 0.3 mg 0.3 mg intramuscularly once Active Aspirin 81 MG 1 tablet Orally Once a day Active FLUTICASONE PROPIONATE 50 mcg/inh 1 spray(s) in each nostril bid for 30 day(s) Active Repatha 140 MG/ML 1 mL Subcutaneous Active Valsartan 160 MG 1 tablet Orally Once a day Active Acetaminophen-Codeine 300-15 MG 1 tablet as needed Orally every 6 hrs Active LEQVIO 284 mg/1.5 mL as directed subcutaneously every 6 months Not-Taking HYDROCHLOROTHIAZIDE 25 mg 1 tab(s) orally once a day Not-Taking CHOLESTYRAMINE 4 g/5 g as directed orall y 2 times a day for 30 day(s) uses once a day Not-Taking DUPIXENT PRE-FILLED PEN 300 MG/2 ML DIRECTED SUBCUTANEOUSLY EVERY 2 WEEKS for 56 DAYS *Please review for potential replacement for e-prescription and drug interaction check* 3 Not-Taking PROAIR HFA 90 mcg/inh 2 puff(s) inhaled Q4-6 hours, PRN and per the asthma action plan for 30 days Active PREDNISONE 20 mg 3 tablets orally once a day-call MD before using for 5 day(s) Active DUPIXENT (DUPILUMAB) 300 mg/2 mL as directed subcutaneously every 2 weeks for 84 days Active ARNUITY ELLIPTA furoate 100 mcg 1 puff(s) inhaled every 24 hours for 90 days Active Immunizations Vaccine Route Administration Date Status Comme nts Flucelvax Unknown 03/08/2019 Administered Flucelvax Unknown 03/13/2019 Refused Flucelvax Unknown 05/25/2019 Administered NOC Flucelevax Quadrivalent Unknown 05/25/2019 Administ jenny NOC Flucelevax Quadrivalent Unknown 05/06/2020 Refused NOC Flucelevax Quadrivalent Unknown 08/05/2020 Refused NOC Prevnar 13 Unknown 08/03/2018 Administered Social History Tobacco Use: Social History Observation Description Date Details (start date - stop date) Never Smoker NA - NA Smoking Smart Form: Question Answer Notes Are you a: never smoker Tobacco Control (Standard) Question Answer Notes Tobacco use: Nonsmoker Problems Problem Type SNOMED Code ICD Code Onset Dates Problem Status W/U Status Risk Notes Problem Chronic allergic conjunctivitis (27409869) Other chronic allergic conjunctivitis (H10.45) Active confirmed Problem Allergic rhinitis caused by pollen (disorder) (04525344) Allergic rhinitis due to pollen (J30.1) Active confirmed Problem Allergic rhinitis (58560929) Other allergic rhinitis (J30.89) Active confirmed Problem Uncomplicated severe persistent asthma (710309937) Severe persistent asthma, uncomplicated (J45.50) Active confirmed Problem Cough (73680568) Cough (R05) Active confirmed Problem Non-steroidal anti-inflammatory drug adverse reaction (958626582) Adverse effect of other nonsteroidal anti-inflammatory drugs [NSAID], initial encounter (T39.395A) Active confirmed Problem Non-steroidal anti-inflammatory drug adverse reaction (519071230) Adverse effect of other nonsteroidal anti-inflammatory drugs [NSAID], subsequent encounter (T39.395D) Active confirmed Problem Allergy to bee venom (595491119) Bee allergy status (Z91.030) Active confirmed Problem Allergic rhinitis caused by animal hair and dander (297329209438125) Allergic rhinitis due to animal (cat) (dog) hair and dander (J30.81) Active confirmed Problem Chronic allergic conjunctivitis (55347876) Other chronic allergic conjunctivitis (H10.45) Active confirmed Problem Polyp of nasal cavity (820434067) Polyp of nasal cavity (J33.0) Active confirmed Problem Food allergy (823889202) Allergy to other foods (Z91.018) Active confirmed Problem Essential hypertension (93002057) Essential (primary) hypertension (I10) Active confirmed Vital Signs Respiratory Rate 16 /min 10/28/2023 Oximetry 98 % 08/10/2024 Blood pressure diastolic 76 mm Hg 08/10/2024 Height 70 in 08/10/2024 Blood pressure systolic 128 mm Hg 08/10/2024 Weight 211.4 lbs 08/10/2024 BMI 30.33 kg/m2 08/10/2024 Encounters Encounter Location Date Provider Diagnosis [address] [address] 11/06/2023 Provider CORNELIO-Damien Severe persistent asthma, uncomplicated J45.50 ; Allergic rhinitis due to pollen J30.1 and Other chronic allergic conjunctivitis H10.45 [facility] [place] [address] [address] 10/28/2023 Le Young Severe persistent asthma, uncomplicated J45.50 ; Polyp of nasal cavity J33.0 ; Adverse effect of other nonsteroidal anti-inflammatory drugs [NSAID], subsequent encounter T39.395D ; Allergic rhinitis due to pollen J30.1 ; Allergic rhinitis due to animal (cat) (dog) hair and dander J30.81 ; Other allergic rhinitis J30.89 ; Other chronic allergic conjunctivitis H10.45 and Essential (primary) hypertension I10 [facility] [place] [address] [address] 04/27/2024 Le Raza Severe persistent asthma, uncomplicated J45.50 ; Polyp of nasal cavity J33.0 ; Adverse effect of other nonsteroidal anti-inflammatory drugs [NSAID], subsequent encounter T39.395D ; Allergic rhinitis due to pollen J30.1 ; Allergic rhinitis due to animal (cat) (dog) hair and dander J30.81 ; Other allergic rhinitis J30.89 ; Other chronic allergic conjunctivitis H10.45 and Essential (primary) hypertension I10 [facility] [address] [place] [address] [address] 08/10/2024 Le Young Severe persistent asthma, uncomplicated J45.50 ; Polyp of nasal cavity J33.0 ; Adverse effect of other nonsteroidal anti-inflammatory drugs [NSAID], subsequent encounter T39.395D ; Allergic rhinitis due to pollen J30.1 ; Allergic rhinitis due to animal (cat) (dog) hair and dander J30.81 ; Other allergic rhinitis J30.89 ; Other chronic allergic conjunctivitis H10.45 and Essential (primary) hypertension I10 [facility] [address] [place] [address] 11/15/2023 Boyd Cooper [facility] [address] [place] [address] 01/17/2024 Boyd Cooper Severe persistent asthma, uncomplicated J45.50 [address] [place] [address] 05/23/2024 Boyd Cooper [facility] [address] [place] [address] 07/20/2024 Boyd Cooper [address] [address] 05/17/2024 Boyd Cooper Assessments Encounter Date Diagnosis (ICD Code) Assessment Notes Treatment Notes Treatment Clinical Notes Section Notes 10/28/2023 Severe persistent asthma, uncomplicated (ICD-10 - J45.50) Severe asthma, was poorly controlled but now with subjective and objective improvement on Dupixent. Instructed him that with his severe asthma, it is important to stay on a controller medication to prevent asthma flares, in the setting of illness. Provided Arnuity prior visit but never started, again encouraged to taking daily inhaler. He thinks since he is doing so well with the Dupixent he does not have to take any other medications. Spirometry last visit with normal FEV1, FVC, and FEV%. Declined flu shot. Will refill BRI to have on hand. He promises to be open to using it. Dupixent log reviewed today. Continue documenting at home administration. 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 Hoping to prevent another sinus surgery with biologic treatmnet but not seeing the benefit he was hoping for with Fasenra so switched to Dupixent. No return of polyps thus far and able to smell. Continue saline nasal washes and hold respules for now. Consider aspirin desensitization given Samter's Triad. Continues to avoid NSAIDs 11/06/2023 Severe persistent asthma, uncomplicated (ICD-10 - J45.50) 01/17/2024 Severe persistent asthma, uncomplicated (ICD-10 - J45.50) 04/27/2024 Severe persistent asthma, uncomplicated (ICD-10 - J45.50) Severe asthma, was poorly controlled but now with subjective and objective improvement on Dupixent. Instructed him that with his severe asthma, it is important to stay on a controller medication to prevent asthma flares, in the setting of illness. Provided Arnuity prior visit but never started, again encouraged to taking daily inhaler. He thinks since he is doing so well with the Dupixent he does not have to take any other medications. Spirometry last visit with normal FEV1, FVC, and FEV%. Declined flu shot. Will refill BRI to have on hand. He promises to be open to using it. Dupixent log reviewed today. Continue documenting at home administration. 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 Hoping to prevent another sinus surgery with biologic treatmnet but not seeing the benefit he was hoping for with Fasenra so switched to Dupixent. No return of polyps thus far and able to smell. Continue saline nasal washes and hold respules for now. Consider aspirin desensitization given Samter's Triad. Continues to avoid NSAIDs 08/10/2024 Severe persistent asthma, uncomplicated (ICD-10 - J45.50) Severe asthma, was poorly controlled but now with subjective and objective improvement on Dupixent. Instructed him that with his severe asthma, it is important to stay on a controller medication to prevent asthma flares, in the setting of illness. Provided Arnuity prior visit but never started, again encouraged to taking daily inhaler. He thinks since he is doing so well with the Dupixent he does not have to take any other medications. Spirometry last visit with normal FEV1, FVC, and FEV%. Declined flu shot. Will refill BRI to have on hand. He promises to be open to using it. Dupixent log reviewed today. Continue documenting at home administration. 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 Hoping to prevent another sinus surgery with biologic treatmnet but not seeing the benefit he was hoping for with Fasenra so switched to Dupixent. No return of polyps thus far and able to smell. Continue saline nasal washes and hold respules for now. Consider aspirin desensitization given Samter's Triad. Continues to avoid NSAIDs 08/10/2024 Adverse effect of other nonsteroidal anti-inflammatory drugs [NSAID], subsequent encounter (ICD-10 - T39.395D) Historical AERD and Samter's triad. Continue to avoid NSAIDs and consider aspirin desentization. Would consider [place] desensitization shooting for 625 mg BID and assess for improvement if symptoms worsen. Given his excellent clinical status on medications including his biologic we'll hold off for now 04/27/2024 Adverse effect of other nonsteroidal anti-inflammatory drugs [NSAID], subsequent encounter (ICD-10 - T39.395D) Historical AERD and Samter's triad. Continue to avoid NSAIDs and consider aspirin desentization. Would consider Sarah-[place] desensitization shooting for 625 mg BID and assess for improvement if symptoms worsen. Given his excellent clinical status on medications including his biologic we'll hold off for now 10/28/2023 Adverse effect of other nonsteroidal anti-inflammatory drugs [NSAID], subsequent encounter (ICD-10 - T39.395D) Historical AERD and Samter's triad. Continue to avoid NSAIDs and consider aspirin desentization. Would consider [place] desensitization shooting for 625 mg BID and assess for improvement if symptoms worsen. Given his excellent clinical status on medications including his biologic we'll hold off for now 10/28/2023 Allergic rhinitis due to pollen (ICD-10 - J30.1) Dylan suffers from atopic disease based upon our prior SPT and history. Currently not taking antihistamines as perceives no improvement, but will consider. Also discussed adjunctive therapies including subcutaneous, specific allergen immunotherapy as relates to the treatment and prevention of atopic disease. Not currently interested 11/06/2023 Allergic rhinitis due to pollen (ICD-10 - J30.1) 04/27/2024 Allergic rhinitis due to pollen (ICD-10 - J30.1) Dylan suffers from atopic disease based upon our prior SPT and history. Currently not taking antihistamines as perceives no improvement, but will consider. Also discussed adjunctive therapies including subcutaneous, specific allergen immunotherapy as relates to the treatment and prevention of atopic disease. Not currently interested 08/10/2024 Allergic rhinitis due to pollen (ICD-10 - J30.1) Dylan suffers from atopic disease based upon our prior SPT and history. Currently not taking antihistamines as perceives no improvement, but will consider. Also discussed adjunctive therapies including subcutaneous, specific allergen immunotherapy as relates to the treatment and prevention of atopic disease. Not currently interested 08/10/2024 Allergic rhinitis due to animal (cat) (dog) hair and dander (ICD-10 - J30.81) Follow allergen avoidance, meds and consider SCIT as an adjunctive treatment to current regimen 04/27/2024 Allergic rhinitis due to animal (cat) (dog) hair and dander (ICD-10 - J30.81) Follow allergen avoidance, meds and consider SCIT as an adjunctive treatment to current regimen 10/28/2023 Allergic rhinitis due to animal (cat) (dog) hair and dander (ICD-10 - J30.81) Follow allergen avoidance, meds and consider SCIT as an adjunctive treatment to current regimen 10/28/2023 Other allergic rhinitis (ICD-10 - J30.89) Follow allergen avoidance, meds and consider SCIT as an adjunctive treatment to current regimen 04/27/2024 Other allergic rhinitis (ICD-10 - J30.89) Follow allergen avoidance, meds and consider SCIT as an adjunctive treatment to current regimen 08/10/2024 Other allergic rhinitis (ICD-10 - J30.89) Follow allergen avoidance, meds and consider SCIT as an adjunctive treatment to current regimen 08/10/2024 Other chronic allergic conjunctivitis (ICD-10 - H10.45) No interval occurances. Continue occular antihistamines PRN 04/27/2024 Other chronic allergic conjunctivitis (ICD-10 - H10.45) No interval occurances. Continue occular antihistamines PRN 10/28/2023 Other chronic allergic conjunctivitis (ICD-10 - H10.45) No interval occurances. Continue occular antihistamines PRN 11/06/2023 Other chronic allergic conjunctivitis (ICD-10 - H10.45) 10/28/2023 Essential (primary) hypertension (ICD-10 - I10) Elevated blood pressure w/o signs of urgency or emergency -continue serial checks -talk to [facility] about rx for LeQvio and can dose here 04/27/2024 Essential (primary) hypertension (ICD-10 - I10) Elevated blood pressure w/o signs of urgency or emergency -continue serial checks -talk to [facility] about rx for LeQvio and can dose here 08/10/2024 Essential (primary) hypertension (ICD-10 - I10) Elevated blood pressure w/o signs of urgency or emergency -continue serial checks -talk to [facility] about rx for LeQvio and can dose here 10/28/2023 Other 04/27/2024 Other 08/10/2024 Other Plan Of Treatment Next Appt Details Provider Name:Le MayaAdriana Raza , 12/14/2024 09:00:00 AM, [address] [facility] [address], [address], Insurance Providers Payer Name Payer Address Payer Phone Subscriber Number Group Number Insured Name Patient Relationship to Insured Coverage Start Date Coverage End Date [employer] (Medicare) Attention Claims [address] [facility] [place] [address] [id number] Dylan Simmons Self - patient is the insured 3 [facility] [address] [place] [address] [id number] Dylan Simmons Self - patient is the insured 3 Medical (General) History Medical History History ICD Code Severe persistent asthma, uncomplicated Allergic rhinitis due to pollen Allergic rhinitis due to animal (cat) (d og) hair and dander Other allergic rhinitis Other chronic allergic conjunctivitis Polyp of nasal cavity Essential (primary) hypertension Micro colitis Surgical History Surgery Date(Month/Year) SINUS SURGERY 1997 SINUS SURGERY 2005 SINUS SURGERY 2009 SINUS SURGERY 2014 Neck fusion 10/2021 Gallbladder removal 04/2022 elbow surgery 04/2024 Hospitalization History Reason Date(Month/Year) SURGERY
--- OUTSIDE RECORDS SUMMARY | 2024-10-12 15:27 | XMS_ITS | Clinical Summary ---
Author Organization [facility] Address [address] [place] [address] Phone Care Team Providers Care Drug Safety Assistant Name Role Phone Bernie Vanessa MD Primary Care Provider [phone] Chris Alejandre MD Unavailable [phone] Allergies Active Allergy Reactions Criticality Noted Date Comments Allopurinol Other (see Comments) 11/06/2020 MADE PT. FEEL LIKE HE HAS ABSOLUTELY NO ENERGY Bee Venom Swelling Low 08/17/2013 Ezetimibe Other (see Comments) 09/03/2021 [employer] Hives Low 08/17/2013 Poison Sophie Ibuprofen Anaphylaxis High 03/12/2021 Reaction: throat swells, Nsaids Anaphylaxis High 02/09/2012 Shellfish-Derived Products Diarrhea 04/19/2019 Allergy to blue mussels. Eats other shellfish and seafood Patient can eat fish Statins Other (see Comments) 07/06/2019 Turmeric Diarrhea,Nausea 06/06/2021 Medications Dupixent 300 MG/2ML Solution Prefilled Syringe 01/01/2022 Active cyclobenzaprine (FLEXERIL) 10 MG Tablet TAKE 1 TABLET BY MOUTH THREE TIMES DAILY NEEDED FOR MUSCLE SPASMS 12/31/2021 Active acetaminophen (TYLENOL) 500 MG Tablet Take 1,000 mg by mouth. Active glucosamine-cho ndroitin 500-400 MG Capsule Take 1 Capsule by mouth 3 times daily. Active niacin 500 MG Tablet Take 1,000 mg by mouth daily. Active TART VALLE PO Take by mouth. Active [place]-3 Fatty Acids (OMEGA-3 FISH OIL PO) Take by mouth. Active Cholecalciferol (VITAMIN D3 PO) Take by mouth. Active folic acid (FOLVITE) 1 MG Tablet Take 1 Tablet by mouth daily. 30 Tablet 01/13/2022 Active Active Problems Problem Noted Date Diagnosed Date Thrombocytopenia 01/08/2022 Family History Medical History Relation Name Comments Cancer Paternal Aunt Relation Name Status Comments Paternal Aunt Social History Tobacco Use Types Packs/Day Years Used Date Smoking Tobacco: Never Smokeless Tobacco: Never Tobacco Cessation:Counseling Given: No Alcohol Use Standard Drinks/Week Comments Yes 0 (1 standard drink = 0.6 oz pur e alcohol) 3 beers daily PHQ-2 Answer Date Recorded Total Score - Questions 1-9 0 12/22 Sex and Gender Information Value Date Recorded Sex Assigned at Not on file Legal Sex Male 3:08 PM CDT Gender Identity Not on file Sexual Orientation Not on file Last Filed Vital Signs Vital Sign Reading Time Taken Comments Blood Pressure 144/78 01/22/2022 10:34 AM CDT Pulse 104 01/22/2022 10:34 AM CDT Temperature 36.7 C (98 F) 01/22/2022 10:34 AM CDT Respiratory Rate - - Oxygen Saturation 98% 01/22/2022 10:34 AM CDT Inhaled Oxygen Concentration - - Weight 92.5 kg (204 lb) 01/22/2022 10:34 AM CDT Height 180.3 cm (5' 11 ) 01/22/2022 10:34 AM CDT Body Mass Index 28.45 01/22/2022 10:34 AM CDT Plan of Treatment Health Maintenance Due Date Last Done Comments Hepatitis C Virus (HCV) Screening 1960 TdaP Immunization 1960 Colonoscopy 2003 Cologuard 02/28/2008 Zoster Immunization (1 of 2) 02/28/2008 Colorectal Cancer Screening 11/22/2021 Immunochemical Fecal Occult Blood 11/21/2022 11/21/2021 Pneumococcal Immunization (50+ years) (3 of 3 - PCV20 or PCV21) 08/11/2023 08/10/2018, 08/03/2018, 03/10/2017 Influenza Immunization (#1) 01/23/202406/2019, 05/25/2019, 03/08/2019, Additional history exists SARS-COV-2 Immunization (2023- season) 2024 Respiratory Syncytial Virus (RSV) Immunization (Adult) (1 - 1-dose 75+ series) 2033 Pneumococcal Immunization Combined Discontinued 08/10/2018, 08/03/2018, 03/10/2017 Hepatitis B Immunization Aged Out No longer eligible based on patient's age to complete this topic Meningococcal Immunization (ACWY) Aged Out No longer eligible based on patient's age to complete this topic Rotavirus Immunization Aged Out No lo nger eligible based on patient's age to complete this topic Insurance [facility] Care Teams Drug Safety Assistant Relationship Specialty [place] [id number] [address] PCP - General Family Medicine 12/09/21 [place] [address] [address] Consulting Physician Oncology 12/09/21
--- OUTSIDE RECORDS SUMMARY | 2024-10-12 15:27 | XMS_ITS | Encounter Summary ---
Author Organization [facility] Address [address] [place] [address] Phone Care Team Providers Care Writer Technical Publications Name Role Phone Bernie Vanessa MD Primary Care Provider [phone] Chris Alejandre MD Unavailable [phone] Reason for Visit * Reason Comments Medication Refill Encounter Details Date Type Department Care Team (Late st Contact Info) Description 02/04/2022 Refill [facility] [address] [place] [address] Chris Alejandre MD [address] [place] [address] Medication Refill Social History Tobacco Use Types Packs/Day Years Used Date Smoking Tobacco: Never Smokeless Tobacco: Never Alcohol Use Standard Drinks/Week Comments Yes 0 (1 standard drink = 0.6 oz pur e alcohol) 3 beers daily PHQ-2 Answer Date Recorded Total Score - Questions 1-9 0 12/22 Sex and Gender Information Value Date Recorded Sex Assigned at Not on file Legal Sex Male 3:08 PM CDT Gender Identity Not on file Sexual Orientation Not on file COVID-19 Exposure Response Date Recorded In the last 10 days, have yo u been in contact with someone who was confirmed or suspected to have Coronavirus/COVID-19? No / Unsure 01/22/2022 10:21 AM CDT documented as of this encounter Miscellaneous Notes * Telephone Encounter - Chantal Perez RN - 02/04/2022 8:26 AM CDT Refill request from pharmacy. Please fill if appropriate. documented in this encounter Plan of Treatment Not on file documented as of this encounter Visit Diagnoses Not on filedocumented in this encounter Care Teams Writer Technical Publications Relationship Specialty [place] [id number] [address] PCP - General Family Medicine 12/09/21 [place] [address] [facility] [address] [address] Consulting Physician Oncology 12/09/21 documented as of this encounter
--- OUTSIDE RECORDS SUMMARY | 2024-10-12 15:27 | XMS_ITS | Encounter Summary ---
Author Organization [facility] Address [address] [place] [address] Phone Care Team Providers Care Ccnp Name Role Phone Bernie Vanessa MD Primary Care Provider [phone] Maximino Honeycutt Primary Care Provider [phone] Santos Parada DO Unavailable [phone] Trinidad Castro MD Unavailable Kourtney Rodriguez Unavailable Maximino Honeycutt Primary Care Provider [phone] Maximino Honeycutt Unavailable [phone] Encounter Details Date Type Department Care Team (Late st Contact Info) Description 05/06/2022 Orders Only [facility] Scanning, Provider Social History Tobacco Use Types Packs/Day Years Used Date Smoking Tobacco: Never Alcohol Use Standard Drinks/Week Comments Yes 0 (1 standard drink = 0.6 oz pur e alcohol) Social Connection and Isolat ion Panel [NHANES] Answer Date Recorded In a typical week, how many times do you talk on the phone with family, friends, or neighbors? More than three times a week 03/25/2022 How often do you get togethe r with friends or relatives? More than three times a week 03/25/2022 How often do you attend chur ch or zoroastrianism services? Never 03/25/2022 Do you belong to any clubs o r organizations such as jain groups, unions, fraternal or athletic groups, or school groups? Yes 03/25/2022 How often do you attend meet ings of the clubs or organizations you belong to? 1 to 4 times per year 03/25/2022 Are you , , di vorced, , never , or living with a partner? 03/25/2022 AUDIT-C Answer Date Recorded Q1: How often do you have a drink containing alcohol? 4 or more times a week 04/09/2022 Q2: How many drinks containi ng alcohol do you have on a typical day when you are drinking? 1 or 2 Q3: How often do you have si x or more drinks on one occasion? Less than monthly 04/09/2022 Overall Financial Resource Strain (CARDIA) Answe r Date Recorded How hard is it for you to pa y for the very basics like food, housing, medical care, and heating? Not hard at all 03/25/2022 PHQ-2 Answer Date Recorded PHQ-2 Total Score 4 03/25/2022 Hunger Vital Sign Answer Date Recorded Within the past 12 months, y ou worried that your food would run out before you got the money to buy more. Never true 03/25/20 22 Within the past 12 months, t he food you bought just didn't last and you didn't have money to get more. Never true 03/25/2022 PRAPARE - Transportation Answer Date Re corded In the past 12 months, has l ack of transportation kept you from medical appointments or from getting medications? No 06/2021 In the past 12 months, has l ack of transportation kept you from meetings, work, or from getting things needed for daily living? No 03/25/2022 Housing Stability Vital Sign Answer [...] place to sleep or slept in a long-term (including now)? No 03/25/2022 Sex and Gender Information Value Date Recorded Sex Assigned at Not on file Legal Sex Male 7:31 AM [employer] Gender Identity Not on file Sexual Orientation Not on file documented as of this encounter Plan of Treatment Not on file documented as of this encounter Procedures Procedure Name Priority Date/Time Associated Diagnosis Comments SCAN - LABS 05/06/2022 documented in this encounter Results * SCAN - LABS (05/06/2022) us Provider Scanning Final Result documented in this encounter Visit Diagnoses Not on filedocumented in this encounter Additional Health Concerns Infection Onset Date Last Indicated Resolved Time MRSA Comment:MRSA Isolation Mcc 07/26/24 01/30/2024 01/30/2024 07/26/2024 6:[address] documented as of this encounter Care Teams Ccnp Relationship Specialty Start Date End Date Bernie Vanessa MD PCP - General Family Medicine 03/23/22 10/13/22 Maximino Honeycutt PA PCP - General Family Medicine 10/14/22 02/17/24 Maximino Honeycutt PA [address] [facility] [address] [place], [place] [id number] PCP - General Family Medicine 03/07/24 Santos Parada DO [address] [facility] [address] [place] [address] Consulting Physician Family Medicine 08/06/23 Trinidad Castro MD [address] [facility] [address] [place] [address] Consulting Physician Pain Management 09/02/23 Kourtney Rodriguez PA [address] [address] Orthopedic Surgery 01/31/24 Maximino Honeycutt PA [address] [facility] [address] [place] [address] Physician [employer] [facility] 03/07/24 documented as of this encounter
[2024-10-12 15:56] LABS: Uric Acid 9.1 mg/dL (3.5-8.5)
== END 2024-10-12 15:23 | disposition home or self-care (01) ==
PROVIDERS: PCP Physician Assistant; Visit Provider Orthopaedic Surgery
DX: M17.0 Bilateral primary osteoarthritis of knee (principal); M25.561 Pain in right knee
CPT/HCPCS: 36415; 84550

== ENCOUNTER 2025-01-20 09:46 | Outpatient (CLI) | payer MEDICARE, SELFPAY ==
--- OUTSIDE RECORDS SUMMARY | 2024-03-23 12:30 | XMS_ITS ---
Author Organization Formerly [facility] [employer] [facility] ([address]) Address [address] [place] [address] Care Team Providers Care Floor Sander Name Role Phone Maximino Mancera Primary Care Provider UnavailBoyd Quevedo Unavailable [phone] Le Raza Unavailable [phone] REASON FOR VISIT Asthma follow-up Social History Sex Assigned At : Social History Observation Description Sex Assigned At Male Encounters Encounter Location Date Provider Diagnosis [facility] [address] [place] [address] 03/23/2024 Le Raza Plan Of Treatment Next Appt Details Provider Name:Le Raza , 04/12/2025 10:00:00 AM, [address] [facility], [address], [place], [address], Progress Notes * Dylan FARR JrDOB:[birth year] (64 yo M)Acc No.[id number]:03/23/2024 Asthma F/U Patient: Iván Dylan CHAVEZ Jr Provider: Mohan Raza PA-C :1960 A ge:64 Y S ex:Male Date:03/23/2024 Address:[address] , [place], [id number] Pcp:GEETHA Day Subjective: * Chief Complaints: * 1 . Asthma follow-up. * Medical History: Objective: * Vitals: Assessment: Plan: * Treatment: * Billing Information: * Visit Code: * Procedure Codes: * Electronic signature of Wil Raza PA-C, [facility] on 01/20/2025 at 09:49 AM CDT Sign off status: Pending * Provider: Mohan Raza PA-C Date: Generated for Arielle jefferson/Elijah/Mirna on: 0 01/20/2025 09:49 AM CDT
--- NOTE | ~2025-01-20 | MR_ITS ---
EXAMINATION: MR knee LT wo con DATE: 01/20/2025 10:53 INDICATION: Left knee pain and assessment of left knee status prior to planned right total knee arthroplasty. TECHNIQUE: Magnetic resonance imaging (MRI) of the left knee was performed without intravenous contrast. Sequences included coronal PD-weighted FSE, coronal PD-weighted FS FSE, sagittal T2-weighted FSE, sagittal PD-weighted FS FSE and axial PD weighted fat saturated FSE. COMPARISON: None. FINDINGS: Medial compartment: Small tear along the inferior articular surface and the peripheral third/red zone of the posterior horn of the medial meniscus. Mild partial-thickness chondral fissuring without degenerative subchondral changes at the anterior weightbearing medial femoral condyle. Remaining articular cartilage in the m edial compartment is normal. Lateral compartment: Lateral meniscus is normal. Articular cartilage is normal. Patellofemoral compartment: Deep chondral ulceration cephalad along the patellar apical ridge and extending caudally into the inferomedial aspect of the lateral facet with underlying subarticular cystlike and edema-like changes. Additional more extensive deep chondral ulceration with cortical irregularity and subarticular edema-like and cystlike changes involving much of the lateral trochlea, the trochlear groove and small portion of the inferior medial trochlea. Ligaments and tendons: Anterior and posterior cruciate ligaments are normal. The medial collateral ligament and fibular collateral ligament complex are normal. Patellar tendon is normal. Mild distal quadriceps tendinopathy without tear. There is linear low signal intensity likely fibrosis overlying the patella. The visualized medial and lateral hamstring tendons as well as the iliotibial band are normal. There is moderate tendinopathy without discrete tear of the popliteus tendon near its femoral insertion where there are likely chronic degenerative subcortical cystlike changes. Fluid: Small left knee joint effusion at the suprapatellar pouch. There is also a small Rubi's cyst at the posterior medial aspect of the knee. No loose osteochondral bodies identified. Osseous/other: Bone alignment is normal. No fracture or pathologic marrow replacing process. There is prominent edema in the superficial suprapatellar fat pad consistent with fat pad impingement syndrome. IMPRESSION: 1. Very small tear, likely a longitudinal vertical, along the inferior articular surface of the peripheral third/red zone of the posterior horn of the medial meniscus. 2. 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 3. Mild osteoarthritis the medial compartment with small region of moderate grade chondral malacia along the anterior weightbearing medial femoral condyle. 4. Prominent edema in the superficial suprapatellar fat pad consistent with fat pad impingement syndrome. 5. Small left knee joint effusion and small Rubi's cyst. 6. Likely chronic moderate tendinopathy without discrete tear of the proximal popliteus tendon. Reviewed, dictated and finalized at location A. IMPRESSION: 1. Very small tear, likely a longitudinal vertical, along the inferior articula r surface of the peripheral third/red zone of the posterior horn of the medial meniscus. 2. Moderate to severe patellofemoral osteoarthritis with extensive high-grade c hondromalacia. 3. Mild osteoarthritis the medial compartment with small region of moderate gra de chondral malacia along the anterior weightbearing medial femoral condyle. 4. Prominent edema in the superficial suprapatellar fat pad consistent with fat pad impingement syndrome. 5. Small left knee joint effusion and small Rubi's cyst. 6. Likely chronic moderate tendinopathy without discrete tear of the proximal p opliteus tendon.
--- OUTSIDE RECORDS SUMMARY | 2025-01-20 09:49 | XMS_ITS | Encounter Summary ---
Author Organization [facility] Address [address] [place] [address] Phone Care Team Providers Care Us Marketing Director Name Role Phone Bernie Vanessa MD Primary Care Provider Maximino Honeycutt Primary Care Provider [phone] Santos Parada DO Unavailable [phone] Trinidad Castro MD Unavailable Kourtney Rodriguez Unavailable Maximino Honeycutt Primary Care Provider [phone] Maximino Honeycutt Unavailable [phone] Encounter Details Date Type Department Care Team (Late st Contact Info) Description 05/06/2022 Orders Only [facility] Scanning, Provider Social History Tobacco Use Types Packs/Day Years Used Date Smoking Tobacco: Never Alcohol Use Standard Drinks/Week Comments Yes 0 (1 standard drink = 0.6 oz pur e alcohol) Social Connection and Isolation Panel Answer Date Recorded In a typical week, how many times do you talk on the phone with family, friends, or neighbors? More than three times a week 03/25/2022 How often do you get togethe r with friends or relatives? More than three times a week 03/25/2022 How often do you attend [facility] or taoist services? Never 03/25/2022 Do you belong to any clubs o r organizations such as yazidi groups, unions, fraternal or athletic groups, or [...] place to sleep or slept in a fdc (including now)? 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 Gender Identity Not on file Sexual Orientation [...] documented as of this encounter Care Teams Us Marketing Director Relationship Specialty Start Date End Date Bernie Vanessa MD PCP - General Family Medicine 03/23/22 10/13/22 Maximino Honeycutt PA PCP - General Family Medicine 10/14/22 02/17/24 Maximino Honeycutt PA [address] [address] PCP - General Family Medicine 03/07/24 Santos Parada DO [address] [place] [address] Consulting Physician Family Medicine 08/06/23 Trinidad Castro MD [address] [place] [address] [facility] [address] Consulting Physician Pain Management 09/02/23 Kourtney Rodriguez PA [address] [facility] [address] [place] [address] Orthopedic Surgery 01/31/24 Maximino Honeycutt PA [address] [facility] [address] [place] [address] Physician Internal Controls Analyst Family Medicine 03/07/24 documented as of this encounter
--- OUTSIDE RECORDS SUMMARY | 2025-01-20 09:50 | XMS_ITS | Clinical Summary ---
Author Organization [facility] Address [address] [place] [address] Care Team Providers Care Wind Turbine Controls Engineer Name Role Phone Santos Parada DO Unavailable [phone] Trinidad Castro MD Unavailable Kourtney Rodriguez Unavailable Maximino Honeycutt Primary Care Provider [phone] Maximino Honeycutt Unavailable [phone] Allergies Active Allergy Reactions Criticality Noted Date Comments Allopurinol Nausea only Low 11/06/2020 Beta-Blockers (Beta-Adrenergic Blocking Agts) Rash Medium 01/29/2024 Cefuroxime Nausea & Vomiting High 08/29/2024 Ezetimibe Joint pain,Other (Se e comments) Low 09/03/2021 Ibuprofen Anaphylaxis High Lisinopril Joint pain Low 01/10/2024 Naproxen Anaphylaxis High Nsaids (Non-Steroidal Anti-Inflammatory Drug) Anaphylaxis High 07/09/2022 Drgqorv-Vrv-Qdo Reductase Inhibitors Muscle pain Medium 07/06/2019 Turmeric Diarrhea,Nausea And Vomiting,Nausea only,Fatigue Low 06/06/2021 Venom-Honey Bee Swelling Medium 08/17/2013 Medications dupilumab (Dupixent Syringe) syringe Inject 2 mL (300 mg total) under the skin every 14 (fourteen) days Active acetaminophen (TYLENOL ORAL) Take by mouth as needed PRN Active EPINEPHrine 0.3 mg/0.3 mL auto-injection syringe Inject 0.3 mL (0.3 mg total) into the muscle as instructed as needed for anaphylaxis 1 each 023 Active gabapentin (NEURONTIN) 300 mg capsule Take 1 capsule (300 mg total) by mouth 3 (three) times a day 90 capsule 1 024 Active cholestyramine (QUESTRAN) 4 gram powder Dissolve 2 scoops ( 8 grams total) in 8 ounces of liquid and drink twice daily before meals. 378 g 11 024 Active valsartan (DIOVAN) 160 mg tablet Take 1 tablet (160 mg total) by mouth daily 90 tablet 3 024 2024 Active hydroCHLOROthiaz lance (HYDRODIURIL) 25 mg tabletIndication s:Primary hypertension Take 1 tablet (25 mg total) by mouth daily 90 tablet 1 025 2025 Active oxyCODONE (ROXICODONE) 5 mg immediate release tablet TAKE 2 TABLETS (10 MG TOTAL) BY MOUTH EVERY 4 (FOUR) HOURS NEEDED FOR ACUTE PAIN <7 DAY SUPPLY Active diazePAM (VALIUM) 5 mg tablet TAKE 1 TABLET (5 MG TOTAL) BY MOUTH EVERY 6 (SIX) HOURS NEEDED (SPASMS). Active calcium citrate 250 mg calcium tablet tablet Take 2.4 tablets (600 mg total) by mouth 2 (two) times a day Active cholecalciferol (VITAMIN D-3) 5,000 unit tablet Take 150 mcg by mouth daily Active dexAMETHasone (DECADRON) 4 mg tablet Take 1 tablet (4 mg total) by mouth 4 times daily Active fluticasone propionate (FLONASE) 50 mcg/actuation nasal spray as needed Active senna-docusate (PERICOLACE) 8.6-50 mg Take 1 tablet by mouth 2 (two) times a day as needed Active aspirin 81 mg enteric coated tablet Take 1 tablet (81 mg total) by mouth daily 90 tablet 3 025 2025 Active evolocumab (REPATHA) syringe syringeIndicatio ns:atherosclerot ic cardiovascular disease Inject 1 mL (140 mg total) under the skin every 2 (two) weeks 6 mL 3 025 Active co-enzyme Q-10 50 mg capsule Take 1 capsule (50 mg total) by mouth daily 2024 Discontinued aspirin 81 mg enteric coated tablet Take 1 tablet (81 mg total) by mouth daily 90 tablet 1 025 2024 Discontinued(R eorder) evolocumab (REPATHA) syringe syringe Inject 1 mL (140 mg total) under the skin every 2 (two) weeks 6 mL 1 025 2024 Discontinued(R eorder) inclisiran (Leqvio) 284 mg/1.5 mL syringe as directed subcutaneously every 6 months 2024 Discontinued(N o longer taking - Do not display on AVS) Active Problems Problem Noted Date Diagnosed Date Septic arthritis 01/28/2024 Abscess of left knee 01/28/2024 Ischemic heart disease 07/27/2023 Rash 07/22/2023 Assessment & Plan (07/22/2023 2:32 PM PHARMACY DISTRICT MANAGER): This is new, moisturizing oil discussed, meds [...] (10/14/2022): Added automatically from request for surgery [id number] Severe malnutrition 03/25/2022 Nasal polyposis 03/22/2022 Assessment [...] (10/14/2022): Added automatically from request for surgery [id number] Generalized abdominal pain 03/09/202210/14 Assessment & Plan (04/14/2023 10:33 AM PHARMACY DISTRICT MANAGER): This is currently stable will continue to [...] opinion Assessment & Plan (04/14/2023 10:33 AM PHARMACY DISTRICT MANAGER): Patient is going to start physical therapy already had back x-rays is going to get me a copy he may need an MRI Radiculopathy, cervical region 03/28/2021 0 10/14/2022 Assessment & Plan (04/14/2023 10:33 AM PHARMACY DISTRICT MANAGER): Currently seeing Rheumatology Acute pain of left [...] inhalers Assessment & Plan (06/08/2023 11:44 AM PHARMACY DISTRICT MANAGER): This is mild/intermittent/controlled with p.r.n. inhalers Mixed [...] accordingly. Assessment & Plan (04/14/2023 10:33 AM PHARMACY DISTRICT MANAGER): Patient is to continue present medications, work [...] I have asked him to take some nfjw-tew-qeiptmd fish oil labs at next visit Assessment & Plan (06/08/2023 11:44 AM PHARMACY DISTRICT MANAGER): Patient has been able to take Zetia or statins due to side effects I have asked him to take some dujb-ahy-dmeofyu fish oil labs at next visit Hypertension 02/26/2012 Overview (08/28/2016): Hypertension Assessment & Plan (10/19/2023 6:27 AM CDT): This is a stable chronic condition. Monitor blood pressure, call if out of parameters as we discussed. Low sodium and caffeine diet. baby asa as discussed if applicable. Diet, exercise and weight reduction. Labs as ordered. F/U routine Assessment & Plan (06/08/2023 11:44 AM PHARMACY DISTRICT MANAGER): This has been control patient did not [...] lisinopril Assessment & Plan (06/08/2023 11:44 AM PHARMACY DISTRICT MANAGER): This is resolved with cessation of lisinopril [...] months. Assessment & Plan (04/14/2023 10:33 AM PHARMACY DISTRICT MANAGER): This is a stable chronic condition. Monitor blood pressure, call if out of parameters as we discussed. Low sodium and caffeine diet. baby asa as discussed if applicable. Diet, exercise and weight reduction. Labs as ordered. F/U routine Encounters Date Type Department Care Team Description 01/18/2025 12:00 PM CDT Office Visit [facility] Medical [facility] Cardiology [address] [place] [address] [place] [phone] Anthony Kim MD Primary hypertension (Primary Dx) 01/12/2025 9:00 AM CDT Office Visit [facility] Gastroenterology [address] [place] [address] Medical Office Building [address] [place] [address] Jewels García, LESLI Class 1 obesity due to excess calories with body mass index (BMI) of 32.0 to 32.9 in adult, unspecified whether serious comorbidity present (Primary Dx); NAFLD (nonalcoholic fatty liver disease) 01/11/2025 Telephone [facility] Cardiology [address] [place] [address] [place] [phone] Anthony Kim MD 01/09/2025 Results Follow-Up [facility] Rheumatology [address] [facility] 2nd Floor [address] [place] [address] Betzy Glaser MD XR Elbow Right 3 or More Views 01/03/2025 12:20 PM CDT Lab [facility] [address] [place] [address] [address] [place] [address] Idiopathic chronic gout of multiple sites without tophus 01/03/2025 12:04 PM CDT - 01/03/2025 11:59 PM CDT Hospital Encounter [facility] Radiology at [facility] [address] [place] [address] Discharge Disposition: Discharge to home or self care 01/03/2025 11:30 AM CDT Office Visit [facility] Rheumatology [address] [facility] 2[address] [place] [address] Betzy Glaser MD Idiopathic chronic gout of multiple sites without tophus (Primary Dx) 12/27/2024 10:00 AM CDT Office Visit [facility] [address] [facility] [address] [place] [address] Bryon Perry MD Lymphocytic colitis (Primary Dx); Hepatic steatosis; Class 1 obesity due to excess calories with serious comorbidity and body mass index (BMI) of 33.0 to 33.9 in adult 11/14/2024 Telephone [facility] Cardiology [address] [place] [address] [address] [facility] [place] [address] Anthony Kim MD Cardiac Clearance Request 10/27/2024 Telephone [facility] Cardiology [address] [place] [address] [place] [phone] Anthony Kim MD from Last 3 Months Immunizations Immunization Administration [...] KNEE ARTHROSCOPY W/ LATERAL RELEASE CATARACT EXTRACTION BACK SURGERY N/A Medical History Medical History Date Comments Hypercholesterolemia Hypertension Asthma Eosinophilic asthma Samter's triad Arthritis Cataract Family History Medical History Relation Name Comments Stroke Brother 1 Mike No Known Problems Brother 2 Drug abuse Brother 3 Mike Zeissstephanie Multiple sclerosis Brother 3 Mike Iris No Known Problems Daughter 1 No Known [...] drink = 0.6 oz pur e alcohol) [facility] Utilities Answer Date Recorded In the past 12 months has [employer], gas, oil, or water [employer] threatened to shut off services in your home? No 01/31/2024 Social Connection and Isolation Panel Answer Date Recorded In a typical week, how many times do you talk on the phone with family, friends, or neighbors? More than three times a week 01/31/2024 How often do you get togethe r with friends or relatives? More than three times a week 01/31/2024 How often do you attend chur ch or temple services? Never 01/31/2024 Do you belong to any clubs o r organizations such as synagogue groups, unions, fraternal or athletic groups, or school groups? Yes 01/31/2024 How often do you attend meet ings of the clubs or organizations you belong to? 1 to 4 times per year 01/31/2024 Are you , , di vorced, , never , or living with a partner? 01/31/2024 AUDIT-C Answer Date Recorded Q1: How often do you have a drink containing alcohol? Never 12/27/2024 Q2: How many drinks containi ng alcohol do you have on a typical day when you are drinking? Patient does not drink Q3: How often do you have si x or more drinks on one occasion? Never 12/27/2024 Overall Financial Resource Strain (CARDIA) Answe r [...] place to sleep or slept in a fpc (including now)? No 03/25/2022 Housing Stability Vital Sign Answer Maynor e Recorded In the last 12 months, was t here a time when you were not able to pay the mortgage or rent on time? No 01/31/2024 In the past 12 months, how m any times have you moved where you were living? 0 01/31/2024 At any time in the past 12 m [facility], were you homeless or living in a fpc (including now)? No 01/31/2024 Personal Safety Answer Date Recorded Have you ever been in or are you currently in a harmful physical or emotional relationship or is someone making you feel afraid or unsafe? Denies 01/29/2024 Sex and Gender Information Value Date Recorded Sex Assigned at Not on file Legal Sex Male 7:31 AM PHARMACY DISTRICT MANAGER Gender Identity Not on file Sexual Orientation Not on file Obstetrics History Last Filed Vital Signs Vital Sign Reading Time Taken Comments Blood Pressure 125/80 01/18/2025 11:58 AM CDT Pulse 96 01/18/2025 11:58 AM CDT Temperature 36.2 C (97.2 F) 01/03/2025 11:21 AM CDT Respiratory Rate 16 01/31/2024 7:29 AM CDT Oxygen Saturation 98% 01/18/2025 11:58 AM CDT Inhaled Oxygen Concentration - - Weight 97.5 kg (215 lb) 01/18/2025 11:58 AM CDT Height 172.7 cm (5' 7.99) 01/18/2025 11:58 AM C DT Body Mass Index 32.7 01/18/2025 11:58 AM CDT Plan of Treatment Health Maintenance Due Date Last Done Comments Hepatitis B Screening 02/28/1976 Pneumococcal vaccine 65+ (3 of 3 - PCV20 or PCV21) 08/11/2023 08/10/2018, 08/03/2018, 03/10/2017 Colon Cancer Screening-Colonoscopy 03/26/2024 03/26/2022, 03/26/2022 Prostate Cancer Screening-PSA 10/14/2024 10/14/2022 Depression Screening 10/19/2024 10/20/2023, 04/14/2023, 03/21/2022, Additional history exists Well Visit 65+ 10/19/2024 10/20/2023, 10/14/2022 Influenza Vaccine (#1) 2025 , 05/25/2019, 05/25/2019, Additional history exists Fall Risk Assessment 01/30/2025 01/31/2024, 10/20/2023, 04/14/2023 Hepatitis C Screening Completed 01/30/2024 DTaP/Tdap/Td Vaccine Discontinued Zoster Vaccine Discontinued Procedures Procedure Name Priority Date/Time Associated Diagnosis Comments ECG 12-LEAD Routine 01/18/2025 12:00 PM CDT Primary hypertension URIC ACID Routine 01/03/2025 12:27 PM CDT Idiopathic chronic gout of multiple sites without tophus XR ELBOW RIGHT 3 OR MORE VIEWS Schedule Routine, Read Routine (OP Routine) 01/03/2025 12:21 PM CDT Idiopathic chronic gout of multiple sites without tophus HEPATITIS PANEL, ACUTE Routine 01/30/2024 6:16 AM CDT PSA SCREEN Routine 10/14/2022 9:44 AM CDT Routine general medical examination at a health care facility COLONOSCOPY 03/26/2022 2:51 PM CDT from Last 3 Months or Most Recently Relevant to Health Maintenance Results * ECG 12 lead (01/18/2025 12:00 PM CDT) us Anthony Kim MD ECG ORDERABLES Final Res ult * Uric acid (01/03/2025 12:27 PM CDT) Uric acid 7.0 3.0 - 8.0 mg/dL Blood 01/03/2025 12:2 7 PM CDT 01/03/2025 1:57 PM CDT us Betzy Glaser MD LAB BLOOD ORDERABLES Final R esult [facility] Department [place] [address] * XR Elbow Right 3 or More Views (01/03/2025 12:21 PM CDT) Anatomical Region Laterality Modality Upper Extremities, Elbow Right Compute d Radiography 01/03/2025 1:27 PM CDT Impressions 01/03/2025 1:27 PM CDT Moderate right elbow osteoarthritis. Electronically signed by: Kee Thomas M.D. Narrative 01/03/2025 1:27 PM CDT EXAMINATION: XR ELBOW RIGHT 3 OR MORE VIEWS HISTORY: Right elbow pain FINDINGS: 3 views of the right elbow were performed without comparison. Alignment of the elbow is normal. There is no joint effusion or acute fracture. There is moderate right elbow osteoarthritis. No erosion is identified. Procedure Note Kee Thomas MD PhD - 01/03/2025 EXAMINATION: XR ELBOW RIGHT 3 OR MORE VIEWS HISTORY: Right elbow pain FINDINGS: 3 views of the right elbow were performed without comparison. Alignment of the elbow is normal. There is no joint effusion or acute fracture. There is moderate right elbow osteoarthritis. No erosion is identified. IMPRESSION: Moderate right elbow osteoarthritis. Electronically signed by: Kee Thomas M.D. us Betzy Glaser MD IMG XR PROCEDURES Final Resu lt * Hepatitis panel, acute Blood (01/30/2024 6:16 AM CDT) Hep A IgM Nonreactive Nonreactive Comment: Interpretive Data: If Hep A IgM Ab is reported as Equivocal, a new sample should be drawn in two weeks for testing. Current interpretive data was last revised on 19. Hep B core IgM Nonreactive Nonreactive [facility] Comment: Interpretive Data If HepB Core IgM Ab is reported as Equivocal, a new sample should be drawn in two weeks for testing. Current interpretive data was last revised on 19. Hep C Ab Nonreactive Nonreactive [facility] Comment: Antibodies to HCV not detected. Does [...] last revised on 2019. HepBsAg Nonreactive Nonreactive [facility] Blood 01/30/2024 6:16 AM CDT 01/30/2024 6:29 AM CDT us Indigo Bowers MD LAB MICROBIOLOGY - G ENERAL ORDERABLES Final Result [facility] [address] [facility] Department [place] [address] * PSA screen (10/14/2022 9:44 AM CDT) PSA-Total 0.26 <=5.40 ng/mL [facility] [place] Comment: Interpretive Data AGE SEX REFERENCE INTERVAL [...] data last revised 21. Testing performed by: [facility], [address] [place] [address]., [id number] Blood 10/14/2022 9:44 AM CDT 10/14/2022 11:42 AM CDT Maximino INIGUEZ LAB BLOOD ORDERABLES Final Resu lt [facility] [address] [facility] [place] [address] * COLONOSCOPY (03/26/2022 2:51 PM CDT) Anatomical Region Laterality Modality Other Narrative Procedure Note Britany Díaz MD - 03/26/2022 2:51 PM CDT [facility] Patient Name: Dylan Simmons Procedure Date: 03/26/2022 2:51 PM Date of : 1960 Admit Type: Inpatient Age: 62 Gender: Male Attending MD: Britany Díaz M.D. Room: [facility] OR POD 5 ROOM 224 Note Status: Finalized Procedure: [...] The scope was passed under direct vision.The [id number] Endoscope was introduced through the anus and advanced to the the cecum, identifiedby appendiceal orifice and ileocecal valve. The colonoscopy was performed without difficulty. The patient tolerated the procedure well. The qualityof the bowel preparation was evaluated using the BBPS ([place] Bowel Preparation Scale) with scores of:Right Colon [...] to: Bernie Vanessa M.D. Recognized by the [place] [employer] for promoting quality in endoscopy Britany Díaz MD ENDOSCOPY PROCEDURES Final Result from Last 3 Months or Most Recently Relevant to Health Maintenance Insurance [email or web address] [address] MEDICARE [facility] [employer] Advance Directives For more information, please contact: [phone] * Full Code (Latest Code Status on File) Date Activated Date Inactivated Comments 01/30/2024 12:37 PM 01/31/2024 4:47 PM * Full Code Date Activated Date Inactivated Comments 01/29/2024 12:55 AM 01/30/2024 12:37 PM * Full Code Date Activated Date Inactivated Comments 03/22/2022 1:25 AM 03/26/2022 11:29 PM Care Teams Wind Turbine Controls Engineer Relationship Specialty Start Date End Date Maximino Honeycutt PA [address] [address] PCP - General Family Medicine 03/07/24 Santos Parada DO [address] [place] [id number] Consulting Physician Family Medicine 08/06/23 Trinidad Castro MD [address] [facility] [address] Consulting Physician Pain Management 09/02/23 Kourtney Rodriguez PA [facility] [address] [address] Orthopedic Surgery 01/31/24 Maxmiino Honeycutt PA [address] [address] Physician Receptionist Telephone Operator Family Medicine 03/07/24
--- OUTSIDE RECORDS SUMMARY | 2025-01-20 09:50 | XMS_ITS | Patient Health Record ---
Author Organization [facility] [employer] ([address]) Address [address] [place] [address] Care Team Providers Care Drafter Refrigeration Name Role Phone Maximino Mancera Primary Care Provider Boyd Ivey Unavailable [phone] Le Raza Unavailable [phone] Allergies Allergen (clinical drug ingredient) Drug/Non Drug Allergy documented on EMR Reaction Allergy Type Onset Date Status Non-steroidal anti-inflammatory agent (FN) NSAID (uncoded) anaphylaxis Allergy Active Reason For Referral No Information Medications Medication SIG (Take, Route, Frequency, Duration) Notes Start Date End Date Status OLOPATADINE OPHTHALMIC 0.2% 1 gtt in each affected eye once a day; Duration: 10 day(s) Active LISINOPRIL 40 mg 1 tab(s) orally once a day Active PREDNISONE 20 mg 3 tablets orally once a day-call MD before using; Duration: 5 day(s) Active PROAIR HFA 90 mcg/inh 2 puff(s) inhaled Q4-6 hours, PRN and per the asthma action plan; Duration: 30 days Active ARNUITY ELLIPTA furoate 100 mcg 1 puff(s) inhaled every 24 hours; Duration: 90 days Active DUPIXENT (DUPILUMAB) 300 mg/2 mL as directed subcutaneously every 2 weeks; Duration: 84 days Active Fluticasone Propionate 50 MCG/ACT 1 spray(s) in each nostril bid; Duration: 30 day(s) Not-Taking Leqvio 284 MG/1.5 ML DIRECTED SUBCUTANEOUSLY EVERY 6 MONTHS *Please review and pick correct strength-formul ation from [employer] options. If intended option is not shown, discontinue and re-order from Quick Search* Not-Taking Lisinopril 40 MG 1 tab(s) orally once a day Not-Taking LEQVIO 284 mg/1.5 mL as directed subcutaneously every 6 months Not-Taking HYDROCHLOROTHIAZIDE 25 mg 1 tab(s) orally once a day Not-Taking CHOLESTYRAMINE 4 g/5 g as directed orall y 2 times a day; Duration: 30 day(s) uses once a day Not-Taking DUPIXENT PRE-FILLED PEN 300 MG/2 ML DIRECTED SUBCUTANEOUSLY EVERY 2 WEEKS; Duration: 56 DAYS *Please review for potential replacement for e-prescription and drug interaction check* 3 Not-Taking Valsartan 160 MG 1 tablet Orally Once a day Active Auvi-Q 0.3 MG/0.3ML 0.3 mg intramuscularly once Active hydroCHLOROthiazide 25 MG 1 tab(s) orally once a day Active Cholestyramine 4 G/5 G DIRECTED ORALL Y 2 TIMES A DAY; Duration: 30 DAY(S) uses once a day *Please review and pick correct strength-formul ation from [employer] options. If intended option is not shown, discontinue and re-order from Quick Search* Active Dupixent 300 MG/2ML inject 1 pen Subcutaneous every 2 weeks; Duration: 56 days 4 Active Acetaminophen-Codeine 300-15 MG 1 tablet as needed Orally every 6 hrs Not-Taking Gabapentin 300 MG 1 capsule Orally Once a day Active Aspirin 81 MG 1 tablet Orally Once a day Active Repatha 140 MG/ML 1 mL Subcutaneous Active Olopatadine HCl 0.2 % 1 gtt in each affected eye once a day; Duration: 10 day(s) Not-Taking predniSONE 20 MG 3 tablets orally once a day-call MD before using; Duration: 5 day(s) Not-Taking Arnuity Ellipta 100 MCG/ACT 1 puff(s) inhaled every 24 hours; Duration: 90 days Not-Taking AUVI -Q 0.3 mg 0.3 mg intramuscularly once Active NASAL WASHES N/A as directed intranasally as needed; Duration: 30 Active FLUTICASONE PROPIONATE 50 mcg/inh 1 spray(s) in each nostril bid; Duration: 30 day(s) Active Immunizations Vaccine Route Administration Date Status Comme nts Flucelvax Unknown 05/25/2019 Administered NOC Flucelevax Quadrivalent Unknown 08/05/2020 Refused NOC Prevnar 13 Unknown 08/03/2018 Administered Flucelvax Unknown 03/13/2019 Refused Flucelvax Unknown 03/08/2019 Administered NOC Flucelevax Quadrivalent Unknown 05/06/2020 Refused NOC Flucelevax Quadrivalent Unknown 05/25/2019 Administ ered Social History Tobacco Use: Social History Observation Description Date Details (start date - stop date) Never Smoker NA - NA Sex Assigned At : Social History Observation Description Sex Assigned At Male Tobacco Control (Standard) Question Answer Notes Tobacco use: Nonsmoker AUDIT-C (Standard) Question Answer Notes Did you have a drink containing alcohol in the p ast year? No Points 0 Interpretation Negative Problems Problem Type SNOMED Code ICD Code Onset Dates Problem Status W/U Status Risk Notes Problem Chronic allergic conjunctivitis (10709568) Other chronic allergic conjunctivitis (H10.45) Active confirmed Problem Allergic rhinitis caused by pollen (disorder) (48259271) Allergic rhinitis due to pollen (J30.1) Active confirmed Problem Allergic rhinitis (87466795) Other allergic rhinitis (J30.89) Active confirmed Problem Uncomplicated severe persistent asthma (725782505) Severe persistent asthma, uncomplicated (J45.50) Active confirmed Problem Cough (02092518) Cough (R05) Active confirmed Problem Non-steroidal anti-inflammatory drug adverse reaction (854692977) Adverse effect of other nonsteroidal anti-inflammatory drugs [NSAID], initial encounter (T39.395A) Active confirmed Problem Non-steroidal anti-inflammatory drug adverse reaction (131572450) Adverse effect of other nonsteroidal anti-inflammatory drugs [NSAID], subsequent encounter (T39.395D) Active confirmed Problem Allergy to bee venom (020126236) Bee allergy status (Z91.030) Active confirmed Problem Allergic rhinitis caused by animal hair and dander (014295361825937) Allergic rhinitis due to animal (cat) (dog) hair and dander (J30.81) Active confirmed Problem Chronic allergic conjunctivitis (50994432) Other chronic allergic conjunctivitis (H10.45) Active confirmed Problem Polyp of nasal cavity (612225714) Polyp of nasal cavity (J33.0) Active confirmed Problem Food allergy (345183215) Allergy to other foods (Z91.018) Active confirmed Problem Essential hypertension (14494887) Essential (primary) hypertension (I10) Active confirmed Vital Signs Respiratory Rate 17 /min 12/14/2024 Oximetry 98 % 12/14/2024 Blood pressure diastolic 92 mm Hg 12/14/2024 Height 70 in 12/14/2024 Blood pressure systolic 167 mm Hg 12/14/2024 Weight 217.8 lbs 12/14/2024 BMI 31.25 kg/m2 12/14/2024 Encounters Encounter Location Date Provider Diagnosis [facility] [address] [place] [address] 12/14/2024 Le Raza Severe persistent asthma, uncomplicated J45.50 ; Polyp of nasal cavity J33.0 ; Adverse effect of other nonsteroidal anti-inflammatory drugs [NSAID], subsequent encounter T39.395D ; Allergic rhinitis due to pollen J30.1 ; Allergic rhinitis due to animal (cat) (dog) hair and dander J30.81 ; Other allergic rhinitis J30.89 ; Other chronic allergic conjunctivitis H10.45 and Essential (primary) hypertension I10 [facility] [address] [place] [address] 08/10/2024 Le Raza Severe persistent asthma, uncomplicated J45.50 ; Polyp of nasal cavity J33.0 ; Adverse effect of other nonsteroidal anti-inflammatory drugs [NSAID], subsequent encounter T39.395D ; Allergic rhinitis due to pollen J30.1 ; Allergic rhinitis due to animal (cat) (dog) hair and dander J30.81 ; Other allergic rhinitis J30.89 ; Other chronic allergic conjunctivitis H10.45 and Essential (primary) hypertension I10 [facility] [address] [place] [address] 04/27/2024 Le Young Severe persistent asthma, uncomplicated J45.50 ; Polyp of nasal cavity J33.0 ; Adverse effect of other nonsteroidal anti-inflammatory drugs [NSAID], subsequent encounter T39.395D ; Allergic rhinitis due to pollen J30.1 ; Allergic rhinitis due to animal (cat) (dog) hair and dander J30.81 ; Other allergic rhinitis J30.89 ; Other chronic allergic conjunctivitis H10.45 and Essential (primary) hypertension I10 [facility] [address] [place] [address] 01/15/2025 Boyd Cooper [facility] [address] [place] [address] 05/17/2024 Boyd Cooper [facility] [address] [place] [address] 07/20/[address] [facility] [address] [place] [address] 05/23/2024 Boyd Cooper Assessments Encounter Date Diagnosis (ICD Code) Assessment Notes Treatment Notes Treatment Clinical Notes Section Notes 12/14/2024 Severe persistent asthma, uncomplicated (ICD-10 - J45.50) [...] home administration. Recommend f/u in 3-4 months 12/14/2024 Polyp of nasal cavity (ICD-10 - J33.0) [...] given [facility]'s Triad. Continues to avoid NSAIDs 04/27/2024 Severe persistent asthma, uncomplicated (ICD-10 - [...] given [facility]'s Triad. Continues to avoid NSAIDs 04/27/2024 Adverse effect of other nonsteroidal anti-inflammatory drugs [NSAID], subsequent encounter (ICD-10 - T39.395D) Historical AERD and Samter's triad. Continue to avoid NSAIDs and consider aspirin desentization. Would consider [place] desensitization shooting for 625 mg BID and assess for improvement if symptoms worsen. Given his excellent clinical status on medications including his biologic we'll hold off for now 08/10/2024 Adverse effect of other nonsteroidal anti-inflammatory drugs [NSAID], subsequent encounter (ICD-10 - T39.395D) Historical AERD and Samter's triad. Continue to avoid NSAIDs and consider aspirin desentization. Would consider [place] desensitization shooting for 625 mg BID and assess for improvement if symptoms worsen. Given his excellent clinical status on medications including his biologic we'll hold off for now 12/14/2024 Adverse effect of other nonsteroidal anti-inflammatory drugs [NSAID], subsequent encounter (ICD-10 - T39.395D) Historical AERD and Samter's triad. Continue to avoid NSAIDs and consider aspirin desentization. Would consider [place] desensitization shooting for 625 mg BID and assess for improvement if symptoms worsen. Given his excellent clinical status on medications including his biologic we'll hold off for now 12/14/2024 Allergic rhinitis due to pollen (ICD-10 - [...] prevention of atopic disease. Not currently interested 04/27/2024 Allergic rhinitis due to pollen (ICD-10 - J30.1) Dylan suffers from atopic disease based upon our prior SPT and history. Currently not taking antihistamines as perceives no improvement, but will consider. Also discussed adjunctive therapies including subcutaneous, specific allergen immunotherapy as relates to the treatment and prevention of atopic disease. Not currently interested 04/27/2024 Allergic rhinitis due to animal (cat) (dog) hair and dander (ICD-10 - J30.81) Follow allergen avoidance, meds and consider SCIT as an adjunctive treatment to current regimen 08/10/2024 Allergic rhinitis due to animal (cat) (dog) hair and dander (ICD-10 - J30.81) Follow allergen avoidance, meds and consider SCIT as an adjunctive treatment to current regimen 12/14/2024 Allergic rhinitis due to animal (cat) (dog) hair and dander (ICD-10 - J30.81) Follow allergen avoidance, meds and consider SCIT as an adjunctive treatment to current regimen 12/14/2024 Other allergic rhinitis (ICD-10 - J30.89) Follow [...] adjunctive treatment to current regimen 04/27/2024 Other chronic allergic conjunctivitis (ICD-10 - H10.45) No interval occurances. Continue occular antihistamines PRN 08/10/2024 Other chronic allergic conjunctivitis (ICD-10 - H10.45) No interval occurances. Continue occular antihistamines PRN 12/14/2024 Other chronic allergic conjunctivitis (ICD-10 - H10.45) No interval occurances. Continue occular antihistamines PRN 12/14/2024 Essential (primary) hypertension (ICD-10 - I10) Elevated blood pressure w/o signs of urgency or emergency -continue serial checks 08/10/2024 Essential (primary) hypertension (ICD-10 - I10) Elevated blood pressure w/o signs of urgency or emergency -continue serial checks -talk to pharmacy informaticist about rx for LeQvio and can dose here 04/27/2024 Essential (primary) hypertension (ICD-10 - I10) Elevated blood pressure w/o signs of urgency or emergency -continue serial checks -talk to pharmacy informaticist about rx for LeQvio and can dose here 08/10/2024 Other 12/14/2024 Other 04/27/2024 Other Plan Of Treatment Next Appt Details Provider Name:Le Raza , 04/12/2025 10:00:00 AM, [address] [facility], [address], [place], [address], Insurance Providers Payer Name Payer Address Payer Phone Subscriber Number Group Number Insured Name Patient Relationship to Insured Coverage Start Date Coverage End Date [employer] (Medicare) Attention Claims [address] [place] [address] [id number] Dylan Simmons Self - patient is the insured 3 [facility] [address] [place] [address] [id number] Dylan Simmons Self - patient is the [...]
--- OUTSIDE RECORDS SUMMARY | 2025-01-20 09:50 | XMS_ITS | Clinical Summary ---
Author Organization [facility] Address [address] [place] [address] Phone Care Team Providers Care Rehabilitation Inspector Name Role Phone Bernie Vanessa MD Primary Care Provider [phone] Chris Alejandre MD Unavailable [phone] Allergies Active Allergy Reactions Criticality Noted Date Comments Allopurinol Other (see Comments) 11/06/2020 MADE PT. FEEL LIKE HE HAS ABSOLUTELY NO ENERGY Bee Venom Swelling Low 08/17/2013 Ezetimibe Other (see Comments) 09/03/2021 Hedera [place] Hives Low 08/17/2013 Poison Sophie Ibuprofen Anaphylaxis [...] TART VALLE PO Take by mouth. Active [place]-3 Fatty Acids (OMEGA-3 FISH OIL PO) Take [...] 10:34 AM CDT Height 180.3 cm (5' 11) 01/22/2022 10:34 AM CDT Body Mass Index 28.45 01/22/2022 10:34 AM CDT Plan of Treatment Health Maintenance Due Date Last Done Comments Hepatitis C Virus (HCV) Screening 1960 TdaP Immunization 1960 Cologuard 2003 Colonoscopy 2003 Zoster Immunization (1 of 2) 02/28/2008 Colorectal Cancer Screening 11/21/2022 Immunochemical Fecal Occult Blood 11/21/2022 11/21/2021 Pneumococcal Immunization (50+ years) (3 of 3 - PCV20 or PCV21) 08/11/2023 08/10/2018, 08/03/2018, 03/10/2017 SARS-COV-2 Immunization ( season) 2024 Influenza Immunization (#1) 01/22/202506/2019, 05/25/2019, 03/08/2019, Additional history exists Respiratory Syncytial Virus (RSV) Immunization (Adult) (1 - 1-dose 75+ series) 2033 Pneumococcal Immunization Combined Discontinued 08/10/2018, 08/03/2018, 03/10/2017 Hepatitis B Immunization Aged Out No longer eligible based on patient's age to complete this topic Human Papillomavirus (HPV) Immunization Aged Out No longer eligible based on patient's age to complete this topic Meningococcal Immunization (ACWY) Aged Out No longer eligible based on patient's age to complete this topic Rotavirus Immunization Aged Out No lo nger eligible based on patient's age to complete this topic Insurance [facility] Care Teams Rehabilitation Inspector Relationship Specialty [place] [address] [facility] [address] [id number] PCP - General Family Medicine 12/09/21 [place] [address] [address] Consulting Physician Oncology 12/09/21
--- OUTSIDE RECORDS SUMMARY | 2025-01-20 09:50 | XMS_ITS | Encounter Summary ---
Author Organization [facility] Address [address] [place] [address] Phone Care Team Providers Care Special Education Instructor Name Role Phone Bernie Vanessa MD Primary Care Provider [phone] Chris Alejandre MD Unavailable [phone] Reason for Visit * Reason Comments Medication Refill Encounter Details Date Type Department Care Team (Late st Contact Info) Description 02/04/2022 Refill [facility] [address] [place] [address] Chris Alejandre MD [address] [place] [address] Medication Refill Social History Tobacco [...] on filedocumented in this encounter Care Teams Special Education Instructor Relationship Specialty [place] [id number] [address] PCP - General Family Medicine 12/09/21 [place] [address] [facility] [address] [address] Consulting Physician Oncology 12/09/21 documented as of this encounter
--- OUTSIDE RECORDS SUMMARY | 2025-01-20 09:50 | XMS_ITS | Encounter Summary ---
Author Organization [facility] Address [address] [place] [address] Phone Care Team Providers Care Director Wholesale Name Role Phone Santos Parada DO Unavailable [phone] Trinidad Castro MD Unavailable Kourtney Rodriguez Unavailable Maximino Honeycutt Primary Care Provider [phone] Maximino Honeycutt Unavailable [phone] Encounter Details Date Type Department Care Team (Late st Contact Info) Description 01/09/2025 Results Follow-Up [facility] Medicine Rheumatology [address] [facility] [address] [place] [address] Betzy Glaser MD [address] [place] [address] XR Elbow Right 3 or More Views Social History Tobacco Use Types Packs/Day Years Used Date Smoking Tobacco: Never Alcohol Use Standard Drinks/Week Comments Yes 0 (1 standard drink = 0.6 oz pur e alcohol) [facility] Utilities Answer Date Recorded In the past 12 months has e electric, gas, oil, or water company [...] often do you attend chur ch or catholic services? Never 01/31/2024 Do you belong to any clubs o r organizations such as buddhism groups, unions, fraternal or athletic groups, or [...] in a fdc (including now)? No 03/25/2022 Housing Stability Vital Sign Answer Maynor e Recorded In the last 12 months, was t here a time when you were not able to pay the mortgage or rent on time? No 01/31/2024 In the past 12 months, how m any times have you moved where you were living? 0 01/31/2024 At any time in the past 12 m [facility], were you homeless or living in a fdc (including now)? No 01/31/2024 Personal Safety Answer Date Recorded Have you ever been in or are you currently in a harmful physical or emotional relationship or is someone making you feel afraid or unsafe? Denies 01/29/2024 Sex and Gender Information Value Date Recorded Sex Assigned at Not on file Legal Sex Male 7:31 AM [employer] Gender Identity Not on file Sexual Orientation Not on file documented as of this encounter Miscellaneous Notes * Telephone Encounter - Betzy Glaser MD - 01/09/2025 11:38 AM CDT Xray looks good. UA around 7. Can observe off therapy. If you develop flare up let us know. For now dietary modification. Can switch hydrochlorothiazide to losartan ( hydrochlorothiazide can increase uric acid) discuss with PCP. documented in this encounter Plan of Treatment Not on file documented as of this encounter Visit Diagnoses Not on filedocumented in this encounter Care Teams Director Wholesale Relationship Specialty Start Date End Date Maximino Honeycutt PA [address] [address] PCP - General Family Medicine 03/07/24 Santos Parada DO [address] [facility] [address] [place] [address] Consulting Physician Family Medicine 08/06/23 Trinidad Castro MD [address] [facility] [address] Consulting Physician Pain Management 09/02/23 Kourtney Rodriguez PA [address] [facility] [address] [address] Orthopedic Surgery 01/31/24 Maximino Honeycutt PA [address] [facility] [address] [place] [address] Physician Lead Generation Specialist Family Medicine 03/07/24 documented as of this encounter
== END 2025-01-20 09:47 | disposition home or self-care (01) ==
LOC: CHSIMG 09:48
PROVIDERS: PCP Physician Assistant; Visit Provider Orthopaedic Surgery
DX: M25.562 Pain in left knee (principal); S83.222A Peripheral tear of medial meniscus, current injury, left knee, initial encounter; M17.12 Unilateral primary osteoarthritis, left knee; M94.262 Chondromalacia, left knee; M79.89 Other specified soft tissue disorders; M25.462 Effusion, left knee; M71.22 Synovial cyst of popliteal space [Baker], left knee
CPT/HCPCS: 73721